=== PATIENT | female | born 1980 | race Caucasian/White ===

== ENCOUNTER 2016-04-24 21:45 | Emergency (ER) | payer OTHER ==
[~2016-04-24] VITALS: Ht 165.1 cm; Wt 68.0 kg
[~2016-04-24 21:45] MED LIST: CLON1TAB36 PO; DIAZ5TAB PO; LAMO200T14 PO; NAPR550T PO; PRD20T PO; TRAM50TA2 PO
[2016-04-24] MEDS ORDERED: OXYB15TA PO (21:52)
[2016-04-24] MEDS ORDERED: NS IV 1000 ML 1,000 ML ONE (22:39)
[2016-04-24] MEDS ORDERED: NS IV 1000 ML 1,000 ML IV ONE (23:18)
[2016-04-24] MEDS ORDERED: KETOROLAC 30 MG/ML VIAL IVP STA (23:30)
--- NOTE | 2016-04-24 23:55 | ED General ---
General Chief Complaint: Dizziness/Syncope Stated Complaint: BLURRED VISION,DIZZINESS Nursing Triage Note: Pt c/o sudden onset dizziness and blurred vision in both eyes around 2100 tonight. Pt reports seeing "bright spots" in both eyes. Nursing Sepsis Screen: No Definite Risk Source of Information: Patient Exam Limitations: No Limitations History of Present Illness Time Seen by Provider: 22:00 Initial Comments Here with report of acute onset of dizziness at work tonight at 9 p.m. it's associated with blurred vision. Reports headache for the last 3 days. Denies fever. Reports seeing spots in her eyes. Timing/Duration: 1 Hour Severity: Moderate Associated Systoms: No Diaphoresis, No Fever/Chills, HeadachesNo Nausea/ Vomiting Allergies and Home Medications Allergies Coded Allergies: No Known Drug Allergies (Unverified , 06/24/11) Home Medications Oxybutynin Chloride 15 Mg Tab.er.24 #30 1 TAB PO DAILY (Reported) Constitutional: see HPINo chills, No fever EENTM: blurred vision see HPINo nose congestion Respiratory: no symptoms reported Cardiovascular: no symptoms reported Genitourinary: no symptoms reported Musculoskeletal: no symptoms reported Skin: no symptoms reported Psychiatric/Neurological: See HPI Headache (global)Denies Weakness, Other ( dizziness) All Other Systems Reviewed Negative Unless Noted: Yes Past Wddehdf-Wsnvxy-Jcjtat Hx Patient Social History Alcohol Use: Denies Use Recreational Drug Use: No Smoking Status: Current Everyday Smoker Recent Foreign Travel: No Contact w/Someone Who Travel: No Recent Infectious Disease Expo: No Recent Hopitalizations: No Physical Abuse Screen: No Sexual Abuse: No Seasonal Allergies Seasonal Allergies: No Surgeries HX Surgeries: Yes Surgeries: Section Respiratory Hx Respiratory Disorders: No Cardiovascular Hx Cardiac Disorders: No Neurological Hx Neurological Disorders: No Reproductive System Hx Reproductive Disorders: No Sexually Transmitted Disease: No Genitourinary Hx Genitourinary Disorders: Yes Genitourinary Disorders: UTI-Chronic Gastrointestinal Hx Gastrointestinal Disorders: No Musculoskeletal Hx Musculoskeletal Disorders: No Endocrine Hx Endocrine Disorders: No HEENT HX ENT Disorders: No Cancer Hx Cancer: No Psychosocial Hx Psychiatric Problems: Yes Behavioral Health Disorders: Anxiety, Depression Integumentary HX Skin/Integumentary Disorder: No Blood Transfusions Hx Blood Disorders: No Adverse Reaction to a Blood Tr: No Reviewed Nursing Assessment Reviewed/Agree w Nursing PMH: Yes Physical Exam Vital Signs Vital Sign - Last 12Hours 04/24/16 21:49 Temp 97.5 Pulse 84 Resp 18 B/P 123/82 Pulse Ox 99 O2 Delivery Room Air Capillary Refill : Less Than 3 Seconds General Appearance: No Apparent Distress WD/WN HEENT: PERRL/EOMI Pharynx Normal Other (nasal congestion mild) Neck: Full Range of Motion Normal Inspection Non Tender Supple Respiratory: Lungs Clear Normal Breath Sounds Cardiovascular: Regular Rate, Rhythm No Murmur Gastrointestinal: Non Tender Soft Back: Normal Inspection No CVA Tenderness No Vertebral Tenderness Extremity: Non Tender No Calf Tenderness Neurologic/Psychiatric: Alert Oriented x3 No Motor/Sensory Deficits 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 Norm as Tested Skin: Normal Color Warm/Dry Progress/Results/Core Measures Results/Orders Lab Results Laboratory Tests Test 04/24/16 22:10 04/24/16 23:58 Range/Units Alanine Aminotransferase (ALT/SGPT) 9 0-55 U/L Albumin 4.5 3.2-4.5 G/DL Alkaline Phosphatase 59 40-136 U/L Anion Gap 12 5-14 MMOL/L Aspartate Amino Transf (AST/SGOT) 11 5-34 U/L BUN/Creatinine Ratio 13 Basophils # (Auto) 0.1 0.0-0.1 10^3/uL Basophils (%) (Auto) 1 0-10 % Blood Urea Nitrogen 11 7-18 MG/DL C-Reactive Protein High Sensitivity 0.02 0.00-0.50 MG/DL Calcium Level 9.2 8.5-10.1 MG/DL Carbon Dioxide Level 22 21-32 MMOL/L Chloride Level 105 98-107 MMOL/L Creatinine 0.86 0.60-1.30 MG/DL D-Dimer < 0.27 0.00-0.49 UG/ML Eosinophils # (Auto) 0.3 0.0-0.3 10^3/uL Eosinophils (%) (Auto) 4 0-10 % Estimat Glomerular Filtration Rate > 60 Glucose Level 116 H 70-105 MG/DL Hematocrit 40 35-52 % Hemoglobin 13.7 11.5-16.0 G/DL Lymphocytes # (Auto) 2.5 1.0-4.0 X 10^3 Lymphocytes (%) (Auto) 32 12-44 % Mean Corpuscular Hemoglobin 32 25-34 PG Mean Corpuscular Hemoglobin Concent 34 32-36 G/DL Mean Corpuscular Volume 95 80-99 FL Mean Platelet Volume 9.7 7.4-10.4 FL Monocytes # (Auto) 0.4 0.0-1.0 X 10^3 Monocytes (%) (Auto) 5 0-12 % Neutrophils # (Auto) 4.5 1.8-7.8 X 10^3 Neutrophils (%) (Auto) 58 42-75 % Platelet Count 296 130-400 10^3/uL Potassium Level 3.4 L 3.6-5.0 MMOL/L Red Blood Count 4.25 L 4.35-5.85 10^6/uL Red Cell Distribution Width 12.7 10.0-14.5 % Serum Test, Qualitative NEGATIVE NEGATIVE Sodium Level 139 135-145 MMOL/L Thyroid Stimulating Hormone (TSH) 1.16 0.35-4.94 UIU/ML Total Bilirubin 0.6 0.1-1.0 MG/DL Total Protein 6.4 6.4-8.2 G/DL Troponin I < 0.30 <0.30 NG/ML White Blood Count 7.8 4.3-11.0 10^3/uL Urine Bacteria MODERATE H /HPF Urine Bilirubin NEGATIVE NEGATIVE Urine Casts NONE /LPF Urine Clarity CLEAR Urine Color YELLOW Urine Crystals NONE /LPF Urine Culture Indicated YES Urine Glucose (UA) NEGATIVE NEGATIVE Urine Ketones NEGATIVE NEGATIVE Urine Leukocyte Esterase 1+ H NEGATIVE Urine Mucus MODERATE H /LPF Urine Nitrite NEGATIVE NEGATIVE Urine Protein 1+ H NEGATIVE Urine RBC RARE /HPF Urine RBC (Auto) 1+ H NEGATIVE Urine Specific Entiat 1.020 1.016-1.022 Urine Squamous Epithelial Cells 10-25 H /HPF Urine Urobilinogen NORMAL NORMAL MG/DL Urine WBC 0-2 /HPF Urine pH 6 5-9 My Orders Orders-CATHERINE RODRIGUEZ MD Ns Iv 1000 Ml (Sodium Chloride 0.9%) (04/24/16 22:39) Saline Lock/Iv-Start (04/24/16 23:18) Ns Iv 1000 Ml (Sodium Chloride 0.9%) (04/24/16 23:18) Ketorolac Injection (Toradol Injection) (04/24/16 23:30) Ua Culture If Indicated (04/24/16 23:54) Ct Head Wo (04/25/16 00:01) Cbc With Automated Diff (04/24/16 22:10) Comprehensive Metabolic Panel (04/24/16 22:10) Hs C Reactive Protein (04/24/16 22:10) Troponin I (04/24/16 22:10) Thyroid Stimulating Hormone (04/24/16 22:10) Fibrin Degradation Products (04/24/16 22:10) Hcg,Qualitative Serum (04/24/16 22:10) Dexamethasone Pf Injection (Decadron Pf (04/25/16 00:37) Urine Culture (04/24/16 23:58) Medications Given in ED Current Medications Medications Dose Ordered Sig/Andrew Route Start Time Stop Time Status Last Admin Dose Admin Sodium Chloride 1,000 ml @ 0 mls/hr Q0M ONCE IV 04/24/16 23:18 04/24/16 23:19 DC 04/24/16 22:48 999 MLS/HR Vital Signs/I&O Vital Sign - Last 12Hours 04/24/16 21:49 Temp 97.5 Pulse 84 Resp 18 B/P 123/82 Pulse Ox 99 O2 Delivery Room Air Blood Pressure Mean: 96 Progress Note : Progress Note Seen and evaluated. IV, labs, normal saline 1 L bolus ordered. Monitor patient. Toradol 30 mg IV ordered. UA added. CT head ordered as patient has continued headache and vomiting symptoms. Monitor patient. Decadron 10 mg IV and secondary treatment for headache. Monitor patient. 0015: Overall improved. 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 She had eye exam last month and new prescription. She was wondering if this may be part of the problem. This could be part of the problem related to the headache. The floating spots that she noted earlier gone now and overall she does feel better. She was encouraged to follow up with her eye doctor for repeat exam and follow-up with her doctor for further evaluation as needed. Chart copy to [facility]. Discharged home with return precautions. Patient verbalize understanding instructions and agreement with plan. Diagnostic Imaging Diagonstic Imaging: CT Plain Films/CT/US/NM/MRI: head Comments No intracranial hemorrhage. No evidence of acute cortical stroke. Visualized sinuses and mastoid air cells are clear. Posterior fossa has a CSF space which could reflect a cisterna magna or arachnoid cyst. Per statrad read. Reviewed: Reviewed Night Hawk Study, Reviewed by Me Departure Impression Impression: Primary Impression: Headache Qualified Code: R51 - Headache Additional Impression: Blurred vision, bilateral Disposition: 01 HOME, SELF-CARE Condition: Improved Departure-Patient Inst. Decision time for Depature: 01:19 Referrals: [facility] (PCP/Family) Primary Care Physician Patient Instructions: Double Vision (DC), Headache, Adult (DC) Add. Discharge Instructions: All discharge instructions reviewed with patient and/or family. Voiced understanding. You may take ibuprofen 600 mg every 8 hours as needed for pain. Follow-up for recheck with your eye doctor within the next one to 2 days. 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 Follow-up with your Dr. in a few days for recheck and further evaluation. Return for worse pain, fever, vomiting, weakness, breathing problems or other concerns as needed. Work/School Note: Work Release Form Date Seen in the Emergency Department: Apr 24, 2016 Return to Work: Apr 25, 2016 Restrictions: No Restrictions Copy Copies To 1: RAMIREZ ALVAREZ TIMOTHY D MD Apr 24, 2016 23:55
[2016-04-25] MEDS ORDERED: DEXAMETHASONE PF 10 MG/ML (DECADRON) VIAL IV STA (00:37)
[2016-04-25 00:44] LABS: BILIRUBIN,URINE NEGATIVE (NEGATIVE); KETONES,URINE NEGATIVE (NEGATIVE); LEUKOCYTE ESTERASE ,URINE 1+ (NEGATIVE); NITRITE,URINE NEGATIVE (NEGATIVE); PH,URINE 6 (5-9); PROTEIN,URINE 1+ (NEGATIVE); UROBILINOGEN,URINE NORMAL (NORMAL)
[2016-04-25 00:45] LABS: BASOPHILS % (AUTO) 1 % (0-10); EOSINOPHILS # (AUTO) 0.3 10^3/uL (0.0-0.3); EOSINOPHILS % (AUTO) 4 % (0-10); LYMPHOCYTES # (AUTO) 2.5 X 10^3 (1.0-4.0); LYMPHOCYTES % (AUTO) 32 % (12-44); MEAN CORPUSCULAR HEMOGLOBIN 32 PG (25-34); MEAN CORPUSCULAR HGB CONC 34 G/DL (32-36); MEAN CORPUSCULAR VOLUME 95 FL (80-99); MEAN PLATELET VOLUME 9.7 FL (7.4-10.4); MONOCYTES # (AUTO) 0.4 X 10^3 (0.0-1.0); MONOCYTES % (AUTO) 5 % (0-12); NEUTROPHILS # (AUTO) 4.5 X 10^3 (1.8-7.8); NEUTROPHILS % (AUTO) 58 % (42-75); PLATELET COUNT 296 10^3/uL (130-400); RED BLOOD COUNT 4.25 10^6/uL (4.35-5.85); RED CELL DISTRIBUTION WIDTH 12.7 % (10.0-14.5); WHITE BLOOD COUNT 7.8 10^3/uL (4.3-11.0)
[2016-04-25 00:46] LABS: ANION GAP 12 MMOL/L (5-14); BASOPHILS # (AUTO) 0.1 10^3/uL (0.0-0.1); BLOOD UREA NITROGEN 11 MG/DL (7-18); BUN/CREATININE RATIO 13; CALCIUM 9.2 MG/DL (8.5-10.1); CARBON DIOXIDE 22 MMOL/L (21-32); CHLORIDE 105 MMOL/L (98-107); CREATININE SERUM 0.86 MG/DL (0.60-1.30); GFR ESTIMATED > 60; GLUCOSE 116 MG/DL (70-105); POTASSIUM 3.4 MMOL/L (3.6-5.0); SODIUM 139 MMOL/L (135-145)
[2016-04-25 00:47] LABS: ALANINE AMINOTRANSFERASE 9 U/L (0-55); ALBUMIN 4.5 G/DL (3.2-4.5); ASPARTATE AMINO TRANSFERASE 11 U/L (5-34); BILIRUBIN,TOTAL 0.6 MG/DL (0.1-1.0); THYROID STIMULATING HORMONE 1.16 UIU/ML (0.35-4.94); TOTAL PROTEIN 6.4 G/DL (6.4-8.2); TROPONIN I < 0.30 NG/ML (<0.30)
[2016-04-25 00:49] LABS: WBC,URINE 0-2 /HPF
[2016-04-25 00:59] LABS: hs C REACTIVE PROTEIN 0.02 MG/DL (0.00-0.50)
[2016-04-25 01:26] VITALS: BP 106/65
--- NOTE | 2016-04-25 05:54 | Diagnostic Imaging Report ---
PROCEDURE: CT head without contrast. INDICATION: Headache Correlation is made to cervical CT of 12/24/2015. CT HEAD: Multiple contiguous axial CT images of the head were obtained. FINDINGS: Ventricles and sulci are within normal limits for size. There is no intracranial hemorrhage identified. There is no abnormal mass effect or shift of midline structures. IMPRESSION: Unremarkable CT of the head. Dictated by: Dictated on workstation # [id number]
== END 2016-04-25 01:26 | disposition home or self-care (01) ==
LOC: EDUNIT# 21:45 → ER 21:46
DX: R51 Headache (principal); H53.8 Other visual disturbances; R42 Dizziness and giddiness; F17.210 Nicotine dependence, cigarettes, uncomplicated
CPT/HCPCS: 36415; 70450; 80053; 81000; 84443; 84484; 84703; 85025; 85379; 86141; 87088; 96361; 96374; 96375

== ENCOUNTER 2016-07-26 14:42 | Emergency (ER) | payer OTHER ==
[~2016-07-26] VITALS: Ht 162.6 cm; Wt 64.9 kg
[~2016-07-26 14:42] MED LIST changes: +OXYB15TA PO
--- NOTE | 2016-07-26 15:42 | ED Lower Extremity ---
General Chief Complaint: Lower Extremity Stated Complaint: SWELLING IN [facility] Nursing Triage Note: PT HERE WITH C/O BILAT LEG/ANKLE SWELLING FOR 1 DAY. Nursing Sepsis Screen: No Definite Risk Source: patient Exam Limitations: no limitations History of Present Illness Time seen by provider: 15:41 Initial Comments Swelling to BLE for the past 24 hours, pain to anterior left lower leg. Small bump on left anterior lower leg. No fevers, dyspnea, or history of this. Onset: this morning Severity: moderate Pain/Injury Location: left leg Modifying Factors: Worse With Movement Allergies and Home Medications Allergies Coded Allergies: No Known Drug Allergies (Unverified , 06/24/11) Constitutional: see HPI EENTM: see HPI Respiratory: no symptoms reported Cardiovascular: no symptoms reported Genitourinary: no symptoms reported Musculoskeletal: no symptoms reported Skin: see HPI Psychiatric/Neurological: No Symptoms Reported Past Jmfyskp-Pooumc-Gqpyco Hx Patient Social History Recent Foreign Travel: No Contact w/Someone Who Travel: No Recent Infectious Disease Expo: No Recent Hopitalizations: No Seasonal Allergies Seasonal Allergies: No Surgeries HX Surgeries: Yes Surgeries: Section Respiratory Hx Respiratory Disorders: No Cardiovascular Hx Cardiac Disorders: No Neurological Hx Neurological Disorders: No Reproductive System Hx Reproductive Disorders: No Sexually Transmitted Disease: No Genitourinary Hx Genitourinary Disorders: Yes Genitourinary Disorders: UTI-Chronic Gastrointestinal Hx Gastrointestinal Disorders: No Musculoskeletal Hx Musculoskeletal Disorders: No Endocrine Hx Endocrine Disorders: No HEENT HX ENT Disorders: No Cancer Hx Cancer: No Psychosocial Hx Psychiatric Problems: Yes Behavioral Health Disorders: Anxiety, Depression Integumentary HX Skin/Integumentary Disorder: No Blood Transfusions Hx Blood Disorders: No Adverse Reaction to a Blood Tr: No Physical Exam Vital Signs Vital Sign - Last 12Hours 07/26/16 15:12 Temp 97.8 Pulse 75 Resp 18 B/P (MAP) 99/60 Pulse Ox 99 O2 Delivery Room Air Capillary Refill : Less Than 3 Seconds General Appearance: WD/WN, no apparent distress HEENT: PERRL/EOMI, normal ENT inspection Neck: full range of motion Cardiovascular: regular rate, rhythm, no murmur Respiratory: lungs clear, normal breath sounds, no respiratory distress, no accessory muscle use Gastrointestinal: normal bowel sounds, non tender, soft Hips: bilateral hip non-tender, bilateral hip normal inspection, bilateral hip normal range of motion Legs: left leg pain (A)), bilateral leg swelling ( i am unable to appreciate any swelling to either lower extremity. ) Knees: bilateral knee non-tender, bilateral knee normal inspection, bilateral knee normal range of motion Ankles: bilateral ankle non-tender, bilateral ankle normal inspection, bilateral ankle normal range of motion Feet: bilateral foot non-tender, bilateral foot normal inspection, bilateral foot normal range of motion ( Make description is there is) Neurologic/Psychiatric: alert, normal mood/affect, oriented x 3 Skin: normal color, warm/dry Progress/Results/Core Measures Results/Orders Lab Results Laboratory Tests Test 07/26/16 15:59 Range/Units White Blood Count 7.2 4.3-11.0 10^3/uL Red Blood Count 4.40 4.35-5.85 10^6/uL Hemoglobin 14.1 11.5-16.0 G/DL Hematocrit 42 35-52 % Mean Corpuscular Volume 95 80-99 FL Mean Corpuscular Hemoglobin 32 25-34 PG Mean Corpuscular Hemoglobin Concent 34 32-36 G/DL Red Cell Distribution Width 13.0 10.0-14.5 % Platelet Count 288 130-400 10^3/uL Mean Platelet Volume 9.2 7.4-10.4 FL Neutrophils (%) (Auto) 59 42-75 % Lymphocytes (%) (Auto) 26 12-44 % Monocytes (%) (Auto) 8 0-12 % Eosinophils (%) (Auto) 6 0-10 % Basophils (%) (Auto) 1 0-10 % Neutrophils # (Auto) 4.2 1.8-7.8 X 10^3 Lymphocytes # (Auto) 1.9 1.0-4.0 X 10^3 Monocytes # (Auto) 0.6 0.0-1.0 X 10^3 Eosinophils # (Auto) 0.5 H 0.0-0.3 10^3/uL Basophils # (Auto) 0.1 0.0-0.1 10^3/uL Sodium Level 142 135-145 MMOL/L Potassium Level 4.2 3.6-5.0 MMOL/L Chloride Level 107 98-107 MMOL/L Carbon Dioxide Level 25 21-32 MMOL/L Anion Gap 10 5-14 MMOL/L Blood Urea Nitrogen 10 7-18 MG/DL Creatinine 0.79 0.60-1.30 MG/DL Estimat Glomerular Filtration Rate > 60 BUN/Creatinine Ratio 13 Glucose Level 98 70-105 MG/DL Calcium Level 9.3 8.5-10.1 MG/DL Total Bilirubin 0.7 0.1-1.0 MG/DL Aspartate Amino Transf (AST/SGOT) 13 5-34 U/L Alanine Aminotransferase (ALT/SGPT) 11 0-55 U/L Alkaline Phosphatase 51 40-136 U/L B-Type Natriuretic Peptide 14.0 <100.0 PG/ML Total Protein 6.5 6.4-8.2 G/DL Albumin 4.4 3.2-4.5 G/DL My Orders Orders - JEFF BUTLER APRN Thyroid Stimulating Hormone (07/26/16 15:19) Cbc With Automated Diff (07/26/16 15:19) Comprehensive Metabolic Panel (07/26/16 15:19) BNP (07/26/16 15:19) Ua Culture If Indicated (07/26/16 15:19) Us Venous Lower Ext Lt (07/26/16 15:40) Tibia/Fibula, Left, 2 Views (07/26/16 15:43) Vital Signs/I&O Vital Sign - Last 12Hours 07/26/16 15:12 Temp 97.8 Pulse 75 Resp 18 B/P (MAP) 99/60 Pulse Ox 99 O2 Delivery Room Air Blood Pressure Mean: 73 Departure Communication Progress Notes Negative venous US. Negative x ray. Impression Impression: Primary Impression: Leg pain Disposition: HOME, SELF-CARE Condition: Stable Departure-Patient Inst. Referrals: [facility] (PCP/Family) Primary Care Physician JEFF BUTLER APRN Jul 26, 2016 15:42
[2016-07-26 16:04] LABS: BASOPHILS # (AUTO) 0.1 10^3/uL (0.0-0.1); BASOPHILS % (AUTO) 1 % (0-10); EOSINOPHILS # (AUTO) 0.5 10^3/uL (0.0-0.3); EOSINOPHILS % (AUTO) 6 % (0-10); LYMPHOCYTES # (AUTO) 1.9 X 10^3 (1.0-4.0); LYMPHOCYTES % (AUTO) 26 % (12-44); MEAN CORPUSCULAR HEMOGLOBIN 32 PG (25-34); MEAN CORPUSCULAR HGB CONC 34 G/DL (32-36); MEAN CORPUSCULAR VOLUME 95 FL (80-99); MEAN PLATELET VOLUME 9.2 FL (7.4-10.4); MONOCYTES # (AUTO) 0.6 X 10^3 (0.0-1.0); MONOCYTES % (AUTO) 8 % (0-12); NEUTROPHILS # (AUTO) 4.2 X 10^3 (1.8-7.8); NEUTROPHILS % (AUTO) 59 % (42-75); PLATELET COUNT 288 10^3/uL (130-400); WHITE BLOOD COUNT 7.2 10^3/uL (4.3-11.0)
[2016-07-26 16:24] LABS: ALANINE AMINOTRANSFERASE 11 U/L (0-55); ALBUMIN 4.4 G/DL (3.2-4.5); ANION GAP 10 MMOL/L (5-14); ASPARTATE AMINO TRANSFERASE 13 U/L (5-34); BILIRUBIN,TOTAL 0.7 MG/DL (0.1-1.0); BLOOD UREA NITROGEN 10 MG/DL (7-18); BUN/CREATININE RATIO 13; CALCIUM 9.3 MG/DL (8.5-10.1); CARBON DIOXIDE 25 MMOL/L (21-32); CHLORIDE 107 MMOL/L (98-107); CREATININE SERUM 0.79 MG/DL (0.60-1.30); GFR ESTIMATED > 60; GLUCOSE 98 MG/DL (70-105); POTASSIUM 4.2 MMOL/L (3.6-5.0); SODIUM 142 MMOL/L (135-145); TOTAL PROTEIN 6.5 G/DL (6.4-8.2)
--- NOTE | 2016-07-26 16:37 | Diagnostic Imaging Report ---
INDICATION: Patient complains of swelling over the left lower leg, states a knot appeared on the anterior leg and midshaft, No known trauma or injury. FINDINGS: Two views of the left leg demonstrate normal ossification. No fractures are present. IMPRESSION: Negative left leg. Dictated by: Dictated on workstation # [id number]
--- NOTE | 2016-07-26 16:49 | Diagnostic Imaging Report ---
INDICATION: Left leg pain and swelling. Lump on the anterior left lower leg. TECHNIQUE: Grayscale with color-flow and Doppler waveform evaluation of the left lower extremity deep venous system. CORRELATION STUDY: None FINDINGS: Color and grayscale sonographic images demonstrate no intraluminal defect within the visualized portion of the common femoral, superficial femoral and/or popliteal veins to suggest thrombus formation. These vessels demonstrate normal response to compression and augmentation. There is some subcutaneous edema in the area of palpable abnormality. IMPRESSION: 1. Negative for deep venous thrombosis of the left leg. Dictated by: Dictated on workstation # [id number]
[2016-07-26 17:25] VITALS: BP 112/87
== END 2016-07-26 17:25 | disposition home or self-care (01) ==
LOC: EDUNIT# 14:42 → ER 14:44
DX: R22.41 Localized swelling, mass and lump, right lower limb (principal); R22.42 Localized swelling, mass and lump, left lower limb; M79.661 Pain in right lower leg; M79.662 Pain in left lower leg
CPT/HCPCS: 36415; 73590; 80053; 83880; 84443; 85025; 99283

== ENCOUNTER → 2016-10-25 | Outpatient (CLI) | payer OTHER ==
--- NOTE | 2016-10-25 16:02 | Diagnostic Imaging Report ---
INDICATION: Bone island reported on the sacrum. TECHNIQUE: 26.2 mCi tech 99 MDP was given IV. FINDINGS: Whole-body imaging as well as coned-down views show normal uptake throughout the skeletal system. No abnormal areas of uptake demonstrated. The sacrum appears normal. IMPRESSION: Normal whole-body bone scan. Dictated by: Dictated on workstation # [id number]
== END ==
LOC: CARD 10:45
PROVIDERS: ATTEND Nurse Practitioner Family
DX: Q79.9 Congenital malformation of musculoskeletal system, unspecified (principal)
CPT/HCPCS: 78306

== ENCOUNTER → 2017-05-16 | Outpatient (CLI) | payer OTHER ==
[~2017-05-16] MED LIST changes: +NAPR-1070 PO; -NAPR550T PO
--- NOTE | 2017-05-16 14:40 | Diagnostic Imaging Report ---
PROCEDURE: US OB SINGLE FETUS <14 WKS. TECHNIQUE: Multiple real-time grayscale images were obtained over the gravid uterus in various projections. INDICATION: Dating. FINDINGS: There is an intrauterine gestational sac containing a pole. measurements are consistent with approximately 12 weeks 2 days gestation. heart rate is recorded at 167 beats per minute. No perigestational sac hemorrhage is detected. Right ovary is unremarkable. Left ovary does contain an approximately 2 cm cyst. No free fluid is seen. IMPRESSION: 1. Single live IUP of 12 weeks 2 days gestational age. The estimated date of confinement sonographically is 11/26/2017. 2. 2 cm left ovarian cyst. Dictated by: Dictated on workstation # [id number]
== END ==
LOC: RAD 13:35
PROVIDERS: ATTEND Family Medicine
DX: Z34.81 Encounter for supervision of other normal pregnancy, first trimester (principal); N83.202 Unspecified ovarian cyst, left side
CPT/HCPCS: 76801

== ENCOUNTER → 2017-07-11 | Outpatient (CLI) | payer OTHER ==
--- NOTE | 2017-07-11 11:09 | Diagnostic Imaging Report ---
INDICATION: survey. TECHNIQUE: Multiple Real-time grayscale images were obtained over the gravid uterus. COMPARISON: 05/16/2017. FINDINGS: There is a single live fetus in a transverse presentation with the head to the maternal right. The placenta is posterior. The amniotic fluid volume is normal. The heart rate was recorded at 149 BPM. The survey demonstrates the kidneys, bladder, and stomach to be unremarkable. The spine is unremarkable. There is a four-chamber heart. There is a three-vessel cord with normal cord insertion. The intracranial structures are unremarkable. The cervical length is 3.8 cm. Biometrical measurements are as follows: Biparietal 4.57 cm, age 19 weeks 6 days. Head circumference 17.37 cm, age 20 weeks 0 days. Abdominal circumference 15.01 cm, age 20 weeks 2 days. Femur length 3.01 cm, age 19 weeks 3 days. Sonographic estimate age: 20 weeks 0 days. Sonographic estimated date of delivery: 11/28/17. Estimated Weight: 315 gm (+/- 46 gm). LMP percentile: 22%. heart rate: 149 beats per minute. number: 1 of 1. IMPRESSION: Single live IUP of approximately 20 weeks 0 days gestational age. The estimated date of confinement sonographically is 11/28/2017. No complicating features are detected. Dictated by: Dictated on workstation # [id number]
== END ==
LOC: RAD 09:39
PROVIDERS: ATTEND Family Medicine
DX: Z36.89 Encounter for other specified antenatal screening (principal); Z3A.20 20 weeks gestation of pregnancy
CPT/HCPCS: 76805

== ENCOUNTER 2017-08-27 06:51 | Outpatient (CLI) | payer OTHER ==
[~2017-08-27] VITALS: Ht 160 cm; Wt 77.1 kg
[2017-08-27 07:22] VITALS: BP 103/53
[2017-08-27 08:35] LABS: BASOPHILS % (AUTO) 0 % (0-10); EOSINOPHILS % (AUTO) 0 % (0-10); HEMATOCRIT 33 % (35-52); HEMOGLOBIN 11.2 G/DL (11.5-16.0); LYMPHOCYTES # (AUTO) 1.8 X 10^3 (1.0-4.0); LYMPHOCYTES % (AUTO) 18 % (12-44); MEAN CORPUSCULAR HEMOGLOBIN 32 PG (25-34); MEAN CORPUSCULAR HGB CONC 34 G/DL (32-36); MEAN CORPUSCULAR VOLUME 96 FL (80-99); MEAN PLATELET VOLUME 9.2 FL (7.4-10.4); MONOCYTES # (AUTO) 0.7 X 10^3 (0.0-1.0); MONOCYTES % (AUTO) 7 % (0-12); NEUTROPHILS # (AUTO) 7.7 X 10^3 (1.8-7.8); NEUTROPHILS % (AUTO) 75 % (42-75); PLATELET COUNT 262 10^3/uL (130-400); RED BLOOD COUNT 3.49 10^6/uL (4.35-5.85); WHITE BLOOD COUNT 10.3 10^3/uL (4.3-11.0)
[2017-08-27 08:54] LABS: ALANINE AMINOTRANSFERASE 11 U/L (0-55); ALBUMIN 3.4 GM/DL (3.2-4.5); ALKALINE PHOSPHATASE 63 U/L (40-136); BILIRUBIN,TOTAL 0.4 MG/DL (0.1-1.0); BUN/CREATININE RATIO 15; CALCIUM 8.8 MG/DL (8.5-10.1); CARBON DIOXIDE 22 MMOL/L (21-32); CHLORIDE 109 MMOL/L (98-107); CREATININE SERUM 0.53 MG/DL (0.60-1.30); GFR ESTIMATED > 60; GLUCOSE 83 MG/DL (70-105); SODIUM 138 MMOL/L (135-145); TOTAL PROTEIN 5.8 GM/DL (6.4-8.2)
--- NOTE | 2017-08-28 15:32 | Physician Query-Final Dx ---
TEVIN LINDSEY 08/28/17 1532: Clinic Account Progress/Dx Physician Query: Please give diagnosis Date of Service August 27, 2017 at 06:51 RAMIREZ ALVAREZ DO 08/29/17 1131: Clinic Account Progress/Dx DIAGNOSIS: Diagnosis 27 week gestations RUQ abdominal pain TEVIN LINDSEY August 28, 2017 15:32 RAMIREZ ALVAREZ DO Aug 29, 2017 11:31
== END 2017-08-27 09:31 | disposition home or self-care (01) ==
LOC: WSo 06:51 → LDRP 06:51 → WSo 09:31
PROVIDERS: ATTEND Family Medicine
DX: O26.892 Other specified pregnancy related conditions, second trimester (principal); R10.11 Right upper quadrant pain; Z3A.27 27 weeks gestation of pregnancy
CPT/HCPCS: 36415; 80053; 85025; 99213

== ENCOUNTER → 2017-09-08 | Outpatient (CLI) | payer OTHER ==
--- NOTE | 2017-09-08 08:39 | Diagnostic Imaging Report ---
PROCEDURE: US Abdomen, limited. TECHNIQUE: Multiple realtime grayscale images were obtained over the abdomen in various projections. INDICATION: Right upper quadrant abdominal pain. FINDINGS: Liver parenchyma is homogeneous with normal echotexture. Gallbladder is clear with no stones or wall thickening. Common duct is not dilated. Pancreas is obscured by bowel gas. Right kidney appeared normal. There is no ascites. IMPRESSION: Negative gallbladder sonogram. Dictated by: Dictated on workstation # [id number]
== END ==
LOC: RAD 06:35
PROVIDERS: ATTEND Family Medicine
DX: R10.11 Right upper quadrant pain (principal)
CPT/HCPCS: 76705

== ENCOUNTER → 2017-09-12 | Outpatient (CLI) | payer OTHER | LOC: LAB 06:35 | PROVIDERS: ATTEND Family Medicine | DX: R73.02 Impaired glucose tolerance (oral) (principal) | CPT/HCPCS: 36415; 82951; 82952; 82962 ==

== ENCOUNTER → 2017-10-27 | Outpatient (CLI) | payer OTHER ==
[~2017-10-27] MED LIST changes: +PREN1TAB86 PO
--- NOTE | 2017-10-27 12:49 | Diagnostic Imaging Report ---
INDICATION: Large for dates. TECHNIQUE: Multiple real-time grayscale images were obtained over the gravid uterus. COMPARISON: 07/11/2017. FINDINGS: There is a single live fetus in a cephalic presentation. The amniotic fluid volume is normal. Placenta is fundal. heart rate was recorded at 146 beats per minute. Biometrical measurements are as follows: Biparietal 9.22 cm, age 37 weeks 4 days. Head circumference 32.37 cm, age 36 weeks 5 days. Abdominal circumference 34.00 cm, age 38 weeks 0 days. Femur length 6.76 cm, age 35 weeks 0 days. Sonographic estimate age: 36 weeks 6 days. Sonographic estimated date of delivery: 11/18/2017. Estimated Weight: 3090 gm (+/- 451 gm). LMP percentile: 84%. heart rate: 146 beats per minute. number: 1 of 1. IMPRESSION: Single live IUP approximately 37 weeks gestational age showing normal interval growth when compared to prior exam. No complicating features are detected. Dictated by: Dictated on workstation # [id number]
== END ==
LOC: RAD 11:43
PROVIDERS: ATTEND Family Medicine
DX: O36.60X0 Maternal care for excessive fetal growth, unspecified trimester, not applicable or unspecified (principal); Z3A.37 37 weeks gestation of pregnancy
CPT/HCPCS: 76816

== ENCOUNTER 2017-11-13 12:48 | Outpatient (CLI) | payer OTHER ==
[~2017-11-13] VITALS: Ht 160 cm; Wt 84.6 kg
[~2017-11-13 12:48] MED LIST changes: -PREN1TAB86 PO
[2017-11-13] MEDS ORDERED: PREN1TAB86 PO (13:02)
[2017-11-13 13:05] VITALS: BP 103/55
== END 2017-11-13 13:32 | disposition home or self-care (01) ==
LOC: PREOP 12:48
PROVIDERS: ATTEND Obstetrics & Gynecology
DX: Z01.818 Encounter for other preprocedural examination (principal)
CPT/HCPCS: 87081

== ENCOUNTER → 2018-01-16 | Outpatient (CLI) | payer OTHER ==
[~2018-01-16] MED LIST changes: +ACHD5005 PO; +DOCU100C37 PO; +FERR325T18 PO; +IBUP-844 PO; +PREN1TAB86 PO
--- NOTE | 2018-01-16 19:05 | Diagnostic Imaging Report ---
INDICATION: Routine screening. COMPARISON: No prior mammograms are available for comparison. This is a baseline study. TECHNIQUE: 2D and 3D bilateral screening mammography was performed with computer-aided detection (CAD) system. FINDINGS: Both breasts are heterogeneously dense, limiting the sensitivity of mammography. There is a circumscribed nodule in the upper right breast retroareolar location which appears to be lateral on the tomographic images. This measures approximately 7 mm. This has circumscribed margins and most likely represents a small cyst. The left breast is unremarkable. The axillae are unremarkable. IMPRESSION: Circumscribed density in the upper and outer retroareolar right breast in an area of palpable abnormality. This most likely represents a cyst; however, further evaluation with ultrasound is recommended. ACR BI-RADS Category 0: Incomplete. (Needs additional imaging evaluation). Result letter will be mailed to the patient. Note: At least 10% of breast cancer is not imaged by mammography. Dictated by: Dictated on workstation # [id number]
== END ==
LOC: RAD 13:08
PROVIDERS: ATTEND Obstetrics & Gynecology
DX: Z12.31 Encounter for screening mammogram for malignant neoplasm of breast (principal); R92.8 Other abnormal and inconclusive findings on diagnostic imaging of breast
CPT/HCPCS: 77067

== ENCOUNTER → 2018-02-13 | Outpatient (CLI) | payer OTHER ==
--- NOTE | 2018-02-13 13:52 | Diagnostic Imaging Report ---
INDICATION: Right breast density. Ultrasound is performed for further evaluation. CORRELATION is made with recent screening mammogram from 01/16/2018. FINDINGS: Sonographic interrogation of the 9 to 12 o'clock location of the right breast was performed. There are 2 cysts present. One cyst at the 10 o'clock location 2 cm from the nipple is seen measuring 6 mm x 4 mm 4 mm. There is a second superficial cyst at the 10 o'clock location 1 cm from the nipple measuring approximately 5 mm. No solid lesion is seen. IMPRESSION: Simple cysts at the 10 o'clock location of the right breast, likely accounting for the mammographic density. The patient may return to routine annual screening mammography. BI-RADS category 2 ACR BI-RADS Category 2: Benign findings. Result letter will be mailed to the patient. Note: At least 10% of breast cancer is not imaged by mammography. Dictated by: Dictated on workstation # [id number]
== END ==
LOC: RAD 12:06
PROVIDERS: ATTEND Obstetrics & Gynecology
DX: N60.01 Solitary cyst of right breast (principal)

== ENCOUNTER → 2018-07-03 | Outpatient (CLI) | payer OTHER ==
--- NOTE | 2018-07-03 09:57 | Diagnostic Imaging Report ---
PROCEDURE: CT abdomen with and without contrast. TECHNIQUE: Multiple contiguous axial CT images of the abdomen were obtained prior to and after intravenous administration of iodinated contrast. Auto Exposure Controls were utilized during the CT exam to meet ALARA standards for radiation dose reduction. INDICATION: Abdominal wall bulge. COMPARISON: No prior studies are available for comparison. FINDINGS: The lung bases are clear. No discrete liver mass is identified. The gallbladder is unremarkable. No biliary duct dilatation is seen. The pancreas and spleen are unremarkable. No adrenal mass is detected. There is a 5-6 mm calculus in the mid left kidney. No hydronephrosis is seen. Aorta is nonaneurysmal. There appears to be a fat-containing umbilical hernia. There is some mild diastasis of the rectus abdominis musculature as well. There are bowel loops that extend partially into the midline anterior abdominal wall as well. No bowel obstruction is seen. There is no evidence of strangulation. No free fluid is identified. IMPRESSION: Umbilical hernia. No other significant abnormality is detected. Dictated by: Dictated on workstation # [id number]
== END ==
LOC: RAD 07:54
PROVIDERS: ATTEND Registered Nurse
DX: K42.9 Umbilical hernia without obstruction or gangrene (principal)
CPT/HCPCS: 74170

== ENCOUNTER → 2018-08-20 | Outpatient (CLI) | payer OTHER ==
[~2018-08-20] VITALS: Ht 160 cm; Wt 65.5 kg
[~2018-08-20] MED LIST changes: +IBUP-1780 PO
== END | disposition home or self-care (01) ==
LOC: PREOP 05:38
PROVIDERS: ATTEND Surgery
DX: Z01.818 Encounter for other preprocedural examination (principal)

== ENCOUNTER 2018-08-27 07:00 | Day surgery (SDC) | payer OTHER ==
[~2018-08-27] VITALS: Ht 160 cm; Wt 66.0 kg
[2018-08-27] VITALS (14 sets, daily range): BP systolic 85–112; BP diastolic 48–78
[2018-08-27] MEDS ORDERED: ceFAZolin 2 GM/50 ML NS 50 ML IV ONE (07:30)
[2018-08-27] MEDS: LACTATED RINGERS 1,000 ML IV PRN ×2 (07:40→10:22)
--- NOTE | 2018-08-27 09:15 | Progress Note-Pre Operative ---
Pre-Operative Progress Note H&P Reviewed The H&P was reviewed, patient examined and no changes noted. Time Seen by Provider: 09:12 Date H&P Reviewed: August 27, 2018 Time H&P Reviewed: 09:13 Pre-Operative Diagnosis: Umbilical Hernia ANGEL KELLEY DO August 27, 2018 09:15
[2018-08-27] MEDS ORDERED: fentaNYL INJECTION 100 MCG/2 ML AMP ONE (09:21)
[2018-08-27] MEDS ORDERED: LIDOCAINE PF 2% 5 ML (XYLOCAINE) VIAL ONE (09:21)
[2018-08-27] MEDS ORDERED: proPOfol 200 MG/20 ML (DIPRIVAN) VIAL IV ONE (09:21)
[2018-08-27] MEDS ORDERED: ONDANSETRON 4 MG/2 ML (SDV) Z0FRAN ONE ×2 (09:21→10:44)
[2018-08-27] MEDS ORDERED: ROCURONIUM 10 MG/ML 5 ML SYRINGE IV ONE (09:21)
[2018-08-27] MEDS ORDERED: MIDAZOLAM 2 MG/2 ML (VERSED) VIAL ONE (09:22)
[2018-08-27] MEDS ORDERED: DEXAMETHASONE 10 MG/ML (DECADRON) 1 ML VIAL ONE (09:26)
[2018-08-27] MEDS ORDERED: KETOROLAC 30 MG/ML VIAL ONE (09:26)
[2018-08-27] MEDS ORDERED: SEVOFLURANE (ULTANE) 15 ML INHAL SOLN ONE ×3 (09:26→10:27)
[2018-08-27] MEDS ORDERED: LIDOCAINE 1% INJ 20 ML 20 ML VIAL ONE (09:44)
[2018-08-27] MEDS ORDERED: BUP/EPI 0.5% 1:200,000 (SENSORCAINE) 30 ML VIAL ONE (09:44)
[2018-08-27] MEDS ORDERED: NEOSTIGMINE 1 MG/ML 5 ML SYRINGE ONE (10:28)
[2018-08-27] MEDS ORDERED: GLYCOPYRROLATE 0.2 MG/ML (ROBINUL) 2 ML VIAL ONE (10:28)
--- NOTE | 2018-08-27 10:42 | Progress Note-Post Operative ---
Post-Operative Progess Note Surgeon (s)/Electric Appliance Installer (s) Surgeon ANGEL KELLEY DO Electric Appliance Installer: [place] Pre-Operative Diagnosis Umbilical Hernia Post-Operative Diagnosis Incarcerated Umbilical hernia Adhesions Peritoneal mass Procedure & Operative Findings Date of Procedure 08/27/18 Procedure Performed/Findings Lap UH repair with mesh FRED Exc peritoneal mass Anesthesia Type GET Estimated Blood Loss Estimated blood loss (mL): scant Specimens/Packing Specimens Removed peritoneal mass, hernia contents ANGEL KELLEY DO August 27, 2018 10:42
[2018-08-27] MEDS ORDERED: ACHD5005 PO (10:44)
[2018-08-27] MEDS ORDERED: morphine INJ 10 MG/ML 1ML (SYR OR VIAL) ONE (10:45)
--- NOTE | 2018-08-27 10:45 | Discharge Inst-Surgical ---
Discharge Inst-Surgical Depart Medication/Instructions New, Converted or Re-Newed RX: RX Given to Pt/Family Patient Instructions Follow up Appt: Make appointment for 1 week. [phone] Instructions: No lifting greater than 20 pounds. No strenuous activity. May shower in 24 hours, no tub bath or soaking. Use incentive spirometer at home as directed. No Smoking Skin/Wound Care: May remove bandages in am. You need to leave the Dermabond on incision it will fall off on it's own. Symptoms to Report: Appetite Changes, Extremity Discoloration, Numbness/Tingling, Swelling Increased, Bleeding Excessive, Eyesight Changes, Pain Increased, Urine Color Change, Constipation(Persistent), Fever over 101 degree F, Pain/Pressure in chest, Urinating Difficulty, Cough Up/Vomit Blood, Heart Beat Irreg/Pounding, Pain/Pressure in jaw, Cramps in feet or legs, Lightheadedness, Pain/Pressure in shoulder, Diarrhea(Persistent), Memory Changes Suddenly, Questions/Concerns, Weight gain consecutive days, Dizziness/Fainting, Nausea/Vomiting, Shortness of Breath, Weight gain over 2 pounds If questions or concerns contact your physician Or seek help at emergency department. Activity Activity as Tolerated: Yes Driving Instructions: No Driving/Refer to Dr. Mullins Discharge Diet: No Restrictions Diet After 24 Hours: Clear Liquid if Nauseous If Any Problems/Questions/Issu: Contact Your Physician, Go to Emergency Room Skin/Wound Care Infection Signs and Symptoms: Increased Redness, Foul Odor of Wound, Increased Drainage, Skin Itchy or Has a Rash, Increased Swelling, Temperature Above 101 F Wound Care Comment: heating pad to neck or shoulder tonight for pain Bathing Instructions: Shower Stitches/Loree/Dermabond Dis: Dermabond Ice Pack: Ice On and Off Site (as needed for pain at incision sites) ANGEL KELLEY DO August 27, 2018 10:45
[2018-08-27] MEDS: ONDANSETRON 4 MG/2 ML (SDV) Z0FRAN IVP PRN ×2 (10:48→10:58)
[2018-08-27] MEDS: morphine INJ 10 MG/ML 1ML (SYR OR VIAL) IVP ONE (10:50)
[2018-08-27] MEDS ORDERED: HYDROmorphone 2 MG/ML VIAL (DILAUDID) ONE (11:18)
[2018-08-27] MEDS ORDERED: MEPERIDINE (DEMEROL) INJ 50 MG/ML IVP ONE (11:30)
[2018-08-27] MEDS ORDERED: HYDROmorphone 2 MG/ML VIAL (DILAUDID) IV ONE (11:30)
--- NOTE | 2018-08-27 14:28 | Anesthesia-General Post-Op ---
General Patient Condition Mental Status/LOC: Same as Preop Cardiovascular: Satisfactory Nausea/Vomiting: Absent Respiratory: Satisfactory Pain: Controlled Complications: Absent Post Op Complications Complications None Follow Up Care/Instructions Patient Instructions None needed. Anesthesia/Patient Condition Patient Condition Patient is doing well, no complaints, stable vital signs, no apparent adverse anesthesia problems. No complications reported per nursing. D/C home per [facility] Criteria: Yes BRITTNI FALLON CRNA August 27, 2018 14:28
--- NOTE | 2018-08-27 15:39 | OPERATIVE REPORT ---
DATE OF SERVICE: 08/27/2018 PREOPERATIVE DIAGNOSIS: Umbilical hernia. POSTOPERATIVE DIAGNOSES: 1. Incarcerated umbilical hernia. 2. Adhesions. 3. Peritoneal mass. PROCEDURES: 1. Laparoscopic umbilical herniorrhaphy with mesh placement. 2. Excision of peritoneal mass. 3. Lysis of adhesions. SURGEON: Angel Rick DO CHARGE MANAGER: Vipul Gaviria DO ANESTHESIA: General endotracheal tube. SPECIMEN: 1. Peritoneal mass. 2. Umbilical hernia contents. BLOOD LOSS: Scant. FLUIDS: Per anesthesia. POSTOPERATIVE CONDITION: Stable. INDICATION FOR PROCEDURE: The patient is a 38-year-old female who has been having abdominal pain and it has not gone away, diagnosed with a small umbilical hernia. We had a discussion regarding the fact that this hernia was very small and may not be causing her pain. It has been six months and nothing has helped and she would like to get it fixed. FINDINGS: The patient had a small incarcerated umbilical hernia. She also had some adhesions. She had a peritoneal mass that we removed and sent to pathology. Of note, she also had a very patulous gallbladder with some adhesions to it that may have indicated previous gallbladder attacks. PROCEDURE NOTE: After informed consent was obtained, the patient was brought to the operating room, placed on the table in supine position. She was sterilely prepped and draped in normal fashion. Local lidocaine was used to infiltrate the skin in the left upper quadrant. I made an incision with #11 blade, carried down through the skin into subcutaneous tissue, deepened down to subcutaneous tissue with Bovie electrocautery down to the fascia. Fascia was incised with Bovie electrocautery and bluntly spread the muscle apart, grasped the peritoneum and then cut the peritoneum with the Metzenbaum scissors and bluntly entered the abdomen and placed 11 mm trocar port under direct visualization. Created pneumoperitoneum and then placed 2 more ports in normal fashion using local lidocaine, 11 blade for stab incision and VersaStep system, all done under direct visualization, one in left lower quadrant, one in the right upper quadrant, almost equal to the umbilicus. Upon entry, noted some adhesions, took a picture of this. Also saw what looked like a small whitish nodule in the peritoneum down to the right lower quadrant and then noted the gallbladder was kind of distended and patulous with some adhesions to it. Took pictures of all this, elected to remove this peritoneal mass and sent to pathology. I took down with a grasper and then cut around it with LigaSure. I then took down the adhesions with the LigaSure, clamping, coagulating and transecting and taking these adhesions down with and then started coming across the peritoneum to get to the umbilical area, found fat in the umbilical hernia. This is incarcerated umbilical hernia, took the fat out and then once this was freed up, elected to place a 4.5-inch round mesh, placed into the abdomen through the left upper quadrant and small stab incision above the umbilicus, placed the Rogelio-Saul through, grasped the mesh, wire and pulled this through the abdominal wall and then blew up the balloon to hold the mesh in place then tacked the mesh in place with a SecureStrap, tacking at 3, 6, 9, and 12 o'clock and then in between at about 0.5 to 1 cm intervals and then in the middle of the mesh. Mesh looked nice, held up very well, took a picture of this, had removed. No other obvious bleeding or any other obvious pathology at this point then removed all the ports under direct visualization allowing pneumoperitoneum to escape. Closed the peritoneum with a 3-0 Vicryl suture of the left upper quadrant and then closed the fascia with 0 Vicryl [id number] suture. Copiously irrigated incisions with normal saline and closed the 2 small 5 mm incisions with single interrupted 4-0 undyed Monocryl subcuticular stitch. Closed the supraumbilical incision with 3 interrupted 4-0 undyed Monocryl subcuticular stitches. Area was cleaned and dried. Dermabond placed as well as Band-Aids. The patient was then transferred to recovery room in stable condition. Sponge, instrument and needle counts were correct at the end of the case. Dr. Gaviria assisted in this case helping to make incision, close incision, identify anatomy and moving anatomy away. Job ID: [id number] DocumentID: [id number] Dictated Date: 08/27/2018 10:56:57 Bit Tripoler Date: 08/27/2018 15:38:32 Dictated By: ANGEL RICK DO
== END 2018-08-27 13:55 | disposition home or self-care (01) ==
LOC: SDC 07:00
PROVIDERS: ATTEND Surgery
DX: K42.0 Umbilical hernia with obstruction, without gangrene (principal); D17.79 Benign lipomatous neoplasm of other sites; F17.210 Nicotine dependence, cigarettes, uncomplicated
CPT/HCPCS: 84703; 87081

== ENCOUNTER 2018-10-13 10:48 | Emergency (ER) | payer OTHER ==
[~2018-10-13] VITALS: Ht 165.1 cm; Wt 65.8 kg
--- NOTE | 2018-10-13 11:10 | ED Abdominal Pain ---
General Chief Complaint: Abdominal/GI Problems Stated Complaint: LOWER RIGHT SIDE PAIN Nursing Triage Note: PT AMB TO RM 9 WITH COMPLAINT OF RLQ ABD PAIN . STATES IT IS A SHARP PAIN THAT IS WORSE WHEN WALKING. Sepsis Screen: No Definite Risk Source of Information: Patient Exam Limitations: No Limitations History of Present Illness Date Seen by Provider: Oct 13, 2018 Time Seen by Provider: 11:08 Initial Comments To ER per private vehicle with reports of right lower quadrant abdominal pain it is sharp, worse with walking, tender to touch. It began yesterday, is associated with some nausea, poor appetite, chills. No measured fever. She went to work today thinking it would get better but it actually got worse. No dysuria and no bowel changes. Had a laparoscopic umbilical hernia repair by Dr. Kelley about a month ago. Timing/Duration: 1-2 Days Severity/Quality: Moderate Location: RLQ Radiation: No Radiation Activities at Onset: None Associated Symptoms: Fever/Chills, Nausea/Vomiting Allergies and Home Medications Allergies Coded Allergies: No Known Drug Allergies (Unverified , 08/20/18) Home Medications Hydrocodone Bit/Acetaminophen 1 Tab Tab, 1 TAB PO Q6H PRN for PAIN-MODERATE Prescribed by: ANGEL KELLEY on 08/27/18 1044 Ibuprofen 800 Mg Tablet, 800 MG PO DAILY, (Reported) Patient Home Medication List Home Medication List Reviewed: Yes Review of Systems Review of Systems Constitutional: see HPI EENTM: No Symptoms Reported Respiratory: No Symptoms Reported Cardiovascular: No Symptoms Reported Gastrointestinal: No Symptoms Reported Genitourinary: No Symptoms Reported Musculoskeletal: no symptoms reported Skin: no symptoms reported Psychiatric/Neurological: No Symptoms Reported Endocrine: No Symptoms Reported Hematologic/Lymphatic: No Symptoms Reported Past Qwtilxw-Iywbpz-Trpdwb Hx Patient Social History Alcohol Use: Denies Use Recreational Drug Use: No Smoking Status: Current Everyday Smoker Type Used: Cigarettes Former Smoker, Quit: Jun 14, 2017 2nd Hand Smoke Exposure: Yes Recent Foreign Travel: No Contact w/Someone Who Travel: No Recent Infectious Disease Expo: No Recent Hopitalizations: No Immunizations Up To Date PED Vaccines UTD: No Date of Influenza Vaccine: Jan 05, 2018 Seasonal Allergies Seasonal Allergies: No Past Medical History Surgeries: Yes (D&C, CS X2) Section, Tubal Ligation Respiratory: No Cardiac: No Neurological: No Reproductive Disorders: No Female Reproductive Disorders: Denies Sexually Transmitted Disease: No HIV/AIDS: No Genitourinary: Yes Kidney Stones Gastrointestinal: No Gastroesophageal Reflux, Chronic Constipation Musculoskeletal: Yes Chronic Back Pain Endocrine: No HEENT: Yes (GLASSES) Loss of Vision: Bilateral Hearing Impairment: Denies Cancer: No Psychosocial: Yes Anxiety Integumentary: No Blood Disorders: No Adverse Reaction/Blood Tranf: No (N/A) Family Medical History Cardiovascular disease 19 MOTHER (grandmother) Diabetes mellitus 19 MOTHER (grandmother) Hypertension 19 MOTHER (mother) Respiratory disorder 19 MOTHER (mother -COPD) Physical Exam Vital Signs Vital Signs - First Documented 10/13/18 10:58 Temp 97.3 Pulse 69 Resp 17 B/P (MAP) 114/75 (88) Pulse Ox 100 O2 Delivery Room Air Capillary Refill : Less Than 3 Seconds Height/Weight/BMI Height: 5'5.00" Weight: 145lbs. 8.0oz. 65.778915ls; 25.8 BMI Method:Stated General Appearance: WD/WN, no apparent distress HEENT: PERRL/EOMI, normal ENT inspection Neck: non-tender, full range of motion Respiratory: no respiratory distress, no accessory muscle use Gastrointestinal: normal bowel sounds, soft; No distended, No guarding; tenderness Extremities: normal range of motion, non-tender Neurologic/Psychiatric: alert, normal mood/affect, oriented x 3 Skin: normal color, warm/dry Progress/Results/Core Measures Results/Orders Lab Results Laboratory Tests Test 10/13/18 11:05 10/13/18 11:13 Range/Units Urine Color YELLOW Urine Clarity CLEAR Urine pH 6 5-9 Urine Specific Kendall 1.015 L 1.016-1.022 Urine Protein NEGATIVE NEGATIVE Urine Glucose (UA) NEGATIVE NEGATIVE Urine Ketones NEGATIVE NEGATIVE Urine Nitrite NEGATIVE NEGATIVE Urine Bilirubin NEGATIVE NEGATIVE Urine Urobilinogen NORMAL NORMAL MG/DL Urine Leukocyte Esterase 1+ H NEGATIVE Urine RBC (Auto) 1+ H NEGATIVE Urine RBC 2-5 H /HPF Urine WBC 5-10 H /HPF Urine Squamous Epithelial Cells 10-25 H /HPF Urine Crystals NONE /LPF Urine Bacteria FEW H /HPF Urine Casts NONE /LPF Urine Mucus SMALL H /LPF Urine Culture Indicated YES White Blood Count 6.2 4.3-11.0 10^3/uL Red Blood Count 4.16 L 4.35-5.85 10^6/uL Hemoglobin 12.7 11.5-16.0 G/DL Hematocrit 39 35-52 % Mean Corpuscular Volume 93 80-99 FL Mean Corpuscular Hemoglobin 31 25-34 PG Mean Corpuscular Hemoglobin Concent 33 32-36 G/DL Red Cell Distribution Width 14.4 10.0-14.5 % Platelet Count 266 130-400 10^3/uL Mean Platelet Volume 9.0 7.4-10.4 FL Neutrophils (%) (Auto) 60 42-75 % Lymphocytes (%) (Auto) 31 12-44 % Monocytes (%) (Auto) 8 0-12 % Eosinophils (%) (Auto) 1 0-10 % Basophils (%) (Auto) 1 0-10 % Neutrophils # (Auto) 3.7 1.8-7.8 X 10^3 Lymphocytes # (Auto) 1.9 1.0-4.0 X 10^3 Monocytes # (Auto) 0.5 0.0-1.0 X 10^3 Eosinophils # (Auto) 0.1 0.0-0.3 10^3/uL Basophils # (Auto) 0.0 0.0-0.1 10^3/uL Sodium Level 137 135-145 MMOL/L Potassium Level 3.9 3.6-5.0 MMOL/L Chloride Level 107 98-107 MMOL/L Carbon Dioxide Level 23 21-32 MMOL/L Anion Gap 7 5-14 MMOL/L Blood Urea Nitrogen 9 7-18 MG/DL Creatinine 0.82 0.60-1.30 MG/DL Estimat Glomerular Filtration Rate > 60 BUN/Creatinine Ratio 11 Glucose Level 94 70-105 MG/DL Calcium Level 9.3 8.5-10.1 MG/DL Corrected Calcium 9.1 8.5-10.1 MG/DL Total Bilirubin 0.7 0.1-1.0 MG/DL Aspartate Amino Transf (AST/SGOT) 14 5-34 U/L Alanine Aminotransferase (ALT/SGPT) 10 0-55 U/L Alkaline Phosphatase 67 40-136 U/L Total Protein 6.5 6.4-8.2 GM/DL Albumin 4.3 3.2-4.5 GM/DL My Orders Orders - JEFF BUTLER APRN Cbc With Automated Diff (10/13/18 11:07) Comprehensive Metabolic Panel (10/13/18 11:07) Ed Iv/Invasive Line Start (10/13/18 11:07) Ct Abd/Pelv W (Appendicitis) (10/13/18 11:07) Iohexol Injection (Omnipaque 350 Mg/Ml 1 (10/13/18 11:30) Received Contrast (Hold Metformin- Contr (10/13/18 11:30) Ns (Ivpb) (Sodium Chloride 0.9% Ivpb Bag (10/13/18 11:30) Medications Given in ED Current Medications Medications Dose Ordered Sig/Andrew Route Start Time Stop Time Status Last Admin Dose Admin Iohexol 75 ml ONCE ONCE IV 10/13/18 11:30 10/13/18 11:31 DC 10/13/18 11:57 75 ML Sodium Chloride 100 ml ONCE ONCE IV 10/13/18 11:30 10/13/18 11:31 DC 10/13/18 11:57 80 ML Vital Signs/I&O 10/13/18 10:58 Temp 97.3 Pulse 69 Resp 17 B/P (MAP) 114/75 (88) Pulse Ox 100 O2 Delivery Room Air Blood Pressure Mean: 88 Diagnostic Imaging Diagonstic Imaging: CT Comments NAME: JAM BAER [facility] REC#: [id number] PT STATUS: REG ER : 1980 PHYSICIAN: JEFF BUTLER APRN ADMIT DATE: 10/13/18/ER Draft Date of Exam:10/13/18 CT ABD/PELV W (APPENDICITIS) PROCEDURE: CT abdomen and pelvis with contrast, rule out appendicitis. TECHNIQUE: Multiple contiguous axial images were obtained through the abdomen and pelvis after the administration of intravenous contrast. INDICATION: Right lower quadrant pain. FINDINGS: Comparison is 07/03/2018. Limited views of lower thorax are normal. Liver is normal. No focal liver lesions are seen. Gallbladder is normal. No biliary ductal dilation. Portal vein is patent. Pancreas, spleen and adrenal glands are normal. Kidneys enhance symmetrically without focal lesion. No hydronephrosis. Urinary bladder is normal. Uterus is normal. There is a corpus luteum cyst in the right ovary. There is a small amount of free pelvic fluid. There are no dilated loops of large or small bowel. The appendix is normal. No abdominal or pelvic lymphadenopathy. No free air. Abdominal aorta is normal in caliber. No suspicious osseous lesions. IMPRESSION: 1. Normal appendix. 2. Right-sided corpus luteum cyst with a small amount of free fluid in keeping with recent ovulation. Dictated on workstation # [id number] Dict: 10/13/18 1221 Trans: 10/13/18 1226 [facility] [id number] Interpreted by: REX FELIX MD Electronically signed by: Departure Impression Primary Impression: Urinary tract infection Qualified Codes: N30.00 - Acute cystitis without hematuria Additional Impression: Ricardo Disposition: HOME, SELF-CARE Condition: Stable Departure-Patient Inst. Decision time for Depature: 12:30 Referrals: [facility] (PCP) Primary Care Physician MILDRED LEONE APRN (Family) Primary Care Physician Patient Instructions: Painful Ovulation (DC), Urinary Tract Infection, Adult (DC) Add. Discharge Instructions: 1. Antibiotics as directed for the UTI. There is a small corpus luteum cyst on the right ovary with a little bit of free fluid in the abdomen consistent with recent ovulation which can occasionally be painful. Take anti-inflammatories for this like ibuprofen, naproxen. Follow-up with your doctor next week for recheck. All discharge instructions reviewed with patient and/or family. Voiced understanding. Scripts Sulfamethoxazole/Trimethoprim (Bactrim Ds Tablet) 1 Each Tablet 1 EACH PO BID, #10 TAB Prov: JEFF BUTLER APRN 10/13/18 Work/School Note: Work Release Form Date Seen in the Emergency Department: Oct 13, 2018 Return to Work: Oct 15, 2018 JEFF BUTLER APRN Oct 13, 2018 11:10
[2018-10-13 11:20] LABS: BASOPHILS % (AUTO) 1 % (0-10); EOSINOPHILS # (AUTO) 0.1 10^3/uL (0.0-0.3); EOSINOPHILS % (AUTO) 1 % (0-10); HEMATOCRIT 39 % (35-52); HEMOGLOBIN 12.7 G/DL (11.5-16.0); LYMPHOCYTES # (AUTO) 1.9 X 10^3 (1.0-4.0); LYMPHOCYTES % (AUTO) 31 % (12-44); MEAN CORPUSCULAR HEMOGLOBIN 31 PG (25-34); MEAN CORPUSCULAR HGB CONC 33 G/DL (32-36); MEAN CORPUSCULAR VOLUME 93 FL (80-99); MONOCYTES # (AUTO) 0.5 X 10^3 (0.0-1.0); MONOCYTES % (AUTO) 8 % (0-12); NEUTROPHILS # (AUTO) 3.7 X 10^3 (1.8-7.8); NEUTROPHILS % (AUTO) 60 % (42-75); PLATELET COUNT 266 10^3/uL (130-400); RED CELL DISTRIBUTION WIDTH 14.4 % (10.0-14.5); WHITE BLOOD COUNT 6.2 10^3/uL (4.3-11.0)
[2018-10-13 11:23] LABS: BILIRUBIN,URINE NEGATIVE (NEGATIVE); CLARITY,URINE CLEAR; COLOR,URINE YELLOW; GLUCOSE, URINE (UA) NEGATIVE (NEGATIVE); KETONES,URINE NEGATIVE (NEGATIVE); LEUKOCYTE ESTERASE ,URINE 1+ (NEGATIVE); NITRITE,URINE NEGATIVE (NEGATIVE); PH,URINE 6 (5-9); PROTEIN,URINE NEGATIVE (NEGATIVE); UROBILINOGEN,URINE NORMAL (NORMAL)
[2018-10-13] MEDS ORDERED: NS 100 ML (IVPB) BAG IV ONE (11:30)
[2018-10-13] MEDS ORDERED: HOLD METFORMIN - RECEIVED CONTRAST 20 ML VIAL IV SCH (11:30)
[2018-10-13] MEDS ORDERED: IOHEXOL 350 MG/ML 100 ML (OMNIPAQUE 350) VIAL IV ONE (11:30)
[2018-10-13 11:42] LABS: ALANINE AMINOTRANSFERASE 10 U/L (0-55); ALBUMIN 4.3 GM/DL (3.2-4.5); ALKALINE PHOSPHATASE 67 U/L (40-136); BILIRUBIN,TOTAL 0.7 MG/DL (0.1-1.0); BUN/CREATININE RATIO 11; CALCIUM 9.3 MG/DL (8.5-10.1); CARBON DIOXIDE 23 MMOL/L (21-32); CHLORIDE 107 MMOL/L (98-107); CREATININE SERUM 0.82 MG/DL (0.60-1.30); GFR ESTIMATED > 60; GLUCOSE 94 MG/DL (70-105); POTASSIUM 3.9 MMOL/L (3.6-5.0); SODIUM 137 MMOL/L (135-145); TOTAL PROTEIN 6.5 GM/DL (6.4-8.2)
[2018-10-13 11:44] LABS: BACTERIA,URINE FEW /HPF
--- NOTE | 2018-10-13 12:27 | Diagnostic Imaging Report ---
PROCEDURE: CT abdomen and pelvis with contrast, rule out appendicitis. TECHNIQUE: Multiple contiguous axial images were obtained through the abdomen and pelvis after the administration of intravenous contrast. INDICATION: Right lower quadrant pain. FINDINGS: Comparison is 07/03/2018. Limited views of lower thorax are normal. Liver is normal. No focal liver lesions are seen. Gallbladder is normal. No biliary ductal dilation. Portal vein is patent. Pancreas, spleen and adrenal glands are normal. Kidneys enhance symmetrically without focal lesion. No hydronephrosis. Urinary bladder is normal. Uterus is normal. There is a corpus luteum cyst in the right ovary. There is a small amount of free pelvic fluid. There are no dilated loops of large or small bowel. The appendix is normal. No abdominal or pelvic lymphadenopathy. No free air. Abdominal aorta is normal in caliber. No suspicious osseous lesions. IMPRESSION: 1. Normal appendix. 2. Right-sided corpus luteum cyst with a small amount of free fluid in keeping with recent ovulation. Dictated by: Dictated on workstation # [id number]
[2018-10-13] MEDS ORDERED: SULF1TAB35 PO (12:31)
[2018-10-13] MEDS ORDERED: KETOROLAC 30 MG/ML VIAL IVP ONE (12:45)
[2018-10-13 12:50] VITALS: BP 105/64
== END 2018-10-13 12:51 | disposition home or self-care (01) ==
LOC: EDUNIT# 10:48 → ER 10:49
DX: N39.0 Urinary tract infection, site not specified (principal); N94.0 Mittelschmerz; K21.9 Gastro-esophageal reflux disease without esophagitis; F41.9 Anxiety disorder, unspecified; F17.210 Nicotine dependence, cigarettes, uncomplicated; Z98.890 Other specified postprocedural states; Z98.51 Tubal ligation status; Z87.442 Personal history of urinary calculi; Z82.49 Family history of ischemic heart disease and other diseases of the circulatory system
CPT/HCPCS: 36415; 74177; 80053; 81000; 84703; 85025; 87077; 87088; 87186; 96374

== ENCOUNTER 2019-02-16 11:47 | Emergency (ER) | payer OTHER ==
[~2019-02-16] VITALS: Ht 160.2 cm; Wt 62.9 kg
[~2019-02-16 11:47] MED LIST changes: +SULF1TAB35 PO
[2019-02-16] MEDS ORDERED: IBUPROFEN TABLET 200 MG TAB PO ONE (12:15)
--- NOTE | 2019-02-16 12:25 | ED Respiratory ---
General Chief Complaint: General Problems/Pain Stated Complaint: PNEUMONIA Nursing Triage Note: AMB TO ROOM REPORTS WAS SEEN AT [facility] ON SAT WITH PNEUMONIA AND PUT ON DOXYCYCLINE,AND BENZONATE. TODAY ONSET OF HER BACK HURTING WITH HEADACH DID NOT TAKE ANYTHNG FOR PAIN REPORTS WAS AT WORK. NO CXR DONE Source: patient Exam Limitations: no limitations History of Present Illness Date Seen by Provider: Feb 16, 2019 Time Seen by Provider: 12:23 Initial Comments To ER with reports of pneumonia. She was at [facility] on Friday02/13/19 diagnosed with walking pneumonia given doxycycline and Tessalon Perles. Today he reports some pain across her back, productive cough. No fevers. She denies shortness of breath. She also has a headache and some dizziness. She does smoke cigarettes Timing/Duration: constant Severity: moderate Associated Symptoms: cough, shortness of breath Allergies and Home Medications Allergies Coded Allergies: No Known Drug Allergies (Unverified , 08/20/18) Home Medications Hydrocodone Bit/Acetaminophen 1 Tab Tab, 1 TAB PO Q6H PRN for PAIN-MODERATE Prescribed by: ANGEL KELLEY on 08/27/18 1044 Ibuprofen 800 Mg Tablet, 800 MG PO DAILY, (Reported) Sulfamethoxazole/Trimethoprim 1 Each Tablet, 1 EACH PO BID Prescribed by: JEFF BUTLER on 10/13/18 1231 Patient Home Medication List Home Medication List Reviewed: Yes Review of Systems Review of Systems Constitutional: see HPI EENTM: see HPI Respiratory: see HPI, cough Genitourinary: no symptoms reported Musculoskeletal: no symptoms reported Skin: no symptoms reported Psychiatric/Neurological: No Symptoms Reported Hematologic/Lymphatic: No Symptoms Reported Immunological/Allergic: no symptoms reported Past Qiiefbl-Cdhszj-Neixvg Hx Patient Social History Type Used: Cigarettes Former Smoker, Quit: Jun 14, 2017 2nd Hand Smoke Exposure: Yes Recent Foreign Travel: No Contact w/Someone Who Travel: No Recent Infectious Disease Expo: No Recent Hopitalizations: No Immunizations Up To Date PED Vaccines UTD: No Date of Influenza Vaccine: Jan 05, 2018 Seasonal Allergies Seasonal Allergies: No Past Medical History Surgeries: Yes (D&C, CS X2) Section, Tubal Ligation Respiratory: No Cardiac: No Neurological: No Reproductive Disorders: No Female Reproductive Disorders: Denies Sexually Transmitted Disease: No HIV/AIDS: No Genitourinary: Yes Kidney Stones Gastrointestinal: No Gastroesophageal Reflux, Chronic Constipation Musculoskeletal: Yes Chronic Back Pain Endocrine: No HEENT: Yes (GLASSES) Loss of Vision: Bilateral Hearing Impairment: Denies Cancer: No Psychosocial: Yes Anxiety Integumentary: No Blood Disorders: No Adverse Reaction/Blood Tranf: No (N/A) Family Medical History Cardiovascular disease 19 MOTHER (grandmother) Diabetes mellitus 19 MOTHER (grandmother) Hypertension 19 MOTHER (mother) Respiratory disorder 19 MOTHER (mother -COPD) Physical Exam Vital Signs - First Documented 02/16/19 11:52 Temp 37.1 Pulse 78 Resp 18 B/P (MAP) 111/73 (86) Pulse Ox 98 O2 Delivery Room Air Capillary Refill : Less Than 3 Seconds Height: 5'5.00" Weight: 145lbs. 8.0oz. [id number]; 24.00 BMI Method:Stated General Appearance: WD/WN, no apparent distress Eyes: Bilateral Eye Normal Inspection, Bilateral Eye PERRL, Bilateral Eye EOMI HEENT: PERRL/EOMI, normal ENT inspection Respiratory: no respiratory distress, no accessory muscle use, wheezing Cardiovascular: regular rate, rhythm Gastrointestinal: normal bowel sounds, non tender, soft Extremities: normal range of motion, non-tender Neurologic/Psychiatric: alert, normal mood/affect, oriented x 3 Skin: normal color, warm/dry Progress/Results/Core Measures Suspected Sepsis Recent Fever Within 48 Hours: No Infection Criteria Present: Documented Infection New/Unexplained Altered Menta: No Sepsis Screen: No Definite Risk SIRS Temperature: Pulse: 78 Respiratory Rate: 18 Laboratory Tests 02/16/19 13:08: White Blood Count 5.5 Blood Pressure 111 /73 Mean: 86 Laboratory Tests 02/16/19 13:08: Platelet Count 250 Results/Orders Lab Results Laboratory Tests Test 02/16/19 13:08 Range/Units White Blood Count 5.5 4.3-11.0 10^3/uL Red Blood Count 4.41 4.35-5.85 10^6/uL Hemoglobin 13.7 11.5-16.0 G/DL Hematocrit 41 35-52 % Mean Corpuscular Volume 93 80-99 FL Mean Corpuscular Hemoglobin 31 25-34 PG Mean Corpuscular Hemoglobin Concent 34 32-36 G/DL Red Cell Distribution Width 14.0 10.0-14.5 % Platelet Count 250 130-400 10^3/uL Mean Platelet Volume 9.2 7.4-10.4 FL Neutrophils (%) (Auto) 46 42-75 % Lymphocytes (%) (Auto) 43 12-44 % Monocytes (%) (Auto) 7 0-12 % Eosinophils (%) (Auto) 3 0-10 % Basophils (%) (Auto) 1 0-10 % Neutrophils # (Auto) 2.5 1.8-7.8 X 10^3 Lymphocytes # (Auto) 2.4 1.0-4.0 X 10^3 Monocytes # (Auto) 0.4 0.0-1.0 X 10^3 Eosinophils # (Auto) 0.1 0.0-0.3 10^3/uL Basophils # (Auto) 0.1 0.0-0.1 10^3/uL My Orders Orders - JEFF BUTLER APRN Cbc With Automated Diff (02/16/19 12:15) Basic Metabolic Panel (02/16/19 12:15) Chest Pa/Lat (2 View) (02/16/19 12:15) Ibuprofen Tablet (Motrin Tablet) (02/16/19 12:15) Albuterol/Ipra Inhalation Soln (Duoneb I (02/16/19 12:30) Svn Small Volume Nebulizer (02/16/19 12:22) Medications Given in ED Current Medications Medications Dose Ordered Sig/Andrew Route Start Time Stop Time Status Last Admin Dose Admin Albuterol/ Ipratropium 3 ml ONCE ONCE INH 02/16/19 12:30 02/16/19 12:31 DC 02/16/19 12:57 3 ML Vital Signs/I&O 02/16/19 02/16/19 11:52 13:00 Temp 37.1 Pulse 78 Resp 18 B/P (MAP) 111/73 (86) Pulse Ox 98 98 O2 Delivery Room Air Room Air Capillary Refill : Less Than 3 Seconds Blood Pressure Mean: 86 POS Departure Impression Primary Impression: Lobar pneumonia Disposition: 01 HOME, SELF-CARE Condition: Stable Departure-Patient Inst. Decision time for Depature: 13:23 Referrals: [facility] (PCP) Primary Care Physician MILDRED LEONE APRN (Family) Primary Care Physician Patient Instructions: Pneumonia, Adult (DC) Add. Discharge Instructions: 1. Stop the doxycycline start the new antibiotic 2. Add the steroids as directed. Return to ER for any concerns. Follow-up with your doctor next week. All discharge instructions reviewed with patient and/or family. Voiced understanding. Scripts Prednisone (Prednisone) 20 Mg Tab 40 MG PO DAILY, #6 TAB 0 Refills Prov: JEFF BUTLER APRN 02/16/19 Levofloxacin (Levaquin) 750 Mg Tablet 750 MG PO DAILY for 5 Days, #5 TAB Prov: JEFF BUTLER APRN 02/16/19 JEFF BUTLER APRN Feb 16, 2019 12:24 POS
[2019-02-16] MEDS ORDERED: RT-ALBUTEROL/IPRATROPIUM 3 ML (DUONEB) VIAL INH ONE (12:30)
--- NOTE | 2019-02-16 13:05 | Diagnostic Imaging Report ---
INDICATION: Cough, headache and dizziness. TIME OF EXAM: 12:54 p.m. COMPARISON: Comparison is made with prior chest from 08/26/2013. FINDINGS: The heart size is normal. There may be very minimal infiltrate in the left base best seen on the frontal view. Otherwise, the lungs are clear. No effusion or pneumothorax is seen. IMPRESSION: Questionable minimal left basilar pneumonia. Dictated by: Dictated on workstation # [id number]
[2019-02-16 13:17] LABS: BASOPHILS # (AUTO) 0.1 10^3/uL (0.0-0.1); BASOPHILS % (AUTO) 1 % (0-10); EOSINOPHILS # (AUTO) 0.1 10^3/uL (0.0-0.3); EOSINOPHILS % (AUTO) 3 % (0-10); HEMATOCRIT 41 % (35-52); HEMOGLOBIN 13.7 G/DL (11.5-16.0); LYMPHOCYTES # (AUTO) 2.4 X 10^3 (1.0-4.0); LYMPHOCYTES % (AUTO) 43 % (12-44); MEAN CORPUSCULAR HEMOGLOBIN 31 PG (25-34); MEAN CORPUSCULAR HGB CONC 34 G/DL (32-36); MEAN CORPUSCULAR VOLUME 93 FL (80-99); MEAN PLATELET VOLUME 9.2 FL (7.4-10.4); MONOCYTES # (AUTO) 0.4 X 10^3 (0.0-1.0); MONOCYTES % (AUTO) 7 % (0-12); NEUTROPHILS # (AUTO) 2.5 X 10^3 (1.8-7.8); NEUTROPHILS % (AUTO) 46 % (42-75); PLATELET COUNT 250 10^3/uL (130-400); WHITE BLOOD COUNT 5.5 10^3/uL (4.3-11.0)
[2019-02-16] MEDS ORDERED: LEVO750T9 PO (13:24)
[2019-02-16] MEDS ORDERED: PRD20T PO (13:24)
[2019-02-16 13:31] LABS: BUN/CREATININE RATIO 14; CALCIUM 9.8 MG/DL (8.5-10.1); CARBON DIOXIDE 24 MMOL/L (21-32); CHLORIDE 104 MMOL/L (98-107); CREATININE SERUM 0.76 MG/DL (0.60-1.30); GFR ESTIMATED > 60; GLUCOSE 90 MG/DL (70-105); SODIUM 139 MMOL/L (135-145)
[2019-02-16 14:11] VITALS: BP 91/69
== END 2019-02-16 14:12 | disposition home or self-care (01) ==
LOC: EDUNIT# 11:47 → ER 11:48
DX: J18.1 Lobar pneumonia, unspecified organism (principal); F41.9 Anxiety disorder, unspecified; K21.9 Gastro-esophageal reflux disease without esophagitis; Z87.891 Personal history of nicotine dependence; Z77.22 Contact with and (suspected) exposure to environmental tobacco smoke (acute) (chronic); Z98.51 Tubal ligation status; Z87.442 Personal history of urinary calculi; Z82.49 Family history of ischemic heart disease and other diseases of the circulatory system
CPT/HCPCS: 36415; 71046; 80048; 85025

== ENCOUNTER 2019-05-23 10:58 | Emergency (ER) | payer OTHER ==
[~2019-05-23] VITALS: Ht 160 cm; Wt 66.0 kg
[~2019-05-23 10:58] MED LIST changes: +LEVO750T9 PO; -OXYB15TA PO; +OXYB15TA19 PO; -TRAM50TA2 PO; +TRM50T PO
[2019-05-23 12:28] VITALS: BP_SYST 111; BP_SYST 94; BP_SYST 97; BP_DIAS 57; BP_DIAS 72; BP_DIAS 77
[2019-05-23] MEDS ORDERED: MECLIZINE 25 MG (ANTIVERT) TAB PO ONE (12:45)
[2019-05-23 12:48] LABS: BILIRUBIN,URINE NEGATIVE (NEGATIVE); CLARITY,URINE CLEAR; COLOR,URINE YELLOW; GLUCOSE, URINE (UA) NEGATIVE (NEGATIVE); KETONES,URINE NEGATIVE (NEGATIVE); LEUKOCYTE ESTERASE ,URINE NEGATIVE (NEGATIVE); NITRITE,URINE NEGATIVE (NEGATIVE); PROTEIN,URINE NEGATIVE (NEGATIVE)
--- NOTE | 2019-05-23 12:48 | ED General ---
General Chief Complaint: Dizziness/Syncope Stated Complaint: DIZZY SPELLS Nursing Triage Note: PT CO OF DIZZINESS SINCE LAST FRIDAY AND HAS SOME PALPATIONS WORSENING YESTERDAY Nursing Sepsis Screen: No Definite Risk History of Present Illness Date Seen by Provider: May 23, 2019 Time Seen by Provider: 12:20 Initial Comments 39-year-old female reports approximately 10 day history of vertigo. She reports it is worse when she sits down, she feels that she is spinning, not the room. In addition, for the last 3 days, she has noted occassional palpitations in her chest after the episodes of vertigo. She thinks it might be related to anxiety from the vertigo. No history of these symptoms in the past, no increased stress at work or home, she does drink 4-6 cups of coffee a day. She had viral URI about 2 weeks ago. No chest or left shoulder/arm pain with her symptoms. She has not seen her PCP for this. Only medication is Motrin, prn. She denies palpitations, chest pain or dizziness at this time. No family history of CAD or DM. Timing/Duration: 1 Week Severity: Mild Associated Systoms: Denies Symptoms; No Chest Pain, No Cough, No Diaphoresis, No Fever/Chills, No Headaches, No Loss of Appetite, No Malaise, No Nausea/Vomiting, No Rash, No Seizure, No Shortness of Air, No Syncope, No Weakness, No Other Allergies and Home Medications Allergies Coded Allergies: No Known Drug Allergies (Unverified , 08/20/18) Home Medications Ibuprofen 800 Mg Tablet, 800 MG PO DAILY, (Reported) Patient Home Medication List Home Medication List Reviewed: Yes Review of Systems Review of Systems Constitutional: see HPI, dizziness Cardiovascular: see HPI, palpitations All Other Systems Reviewed Negative Unless Noted: Yes Past Rjfrsws-Gsvkgj-Mscawq Hx Past Med/Social Hx: Reviewed Nursing Past Med/Soc Hx Patient Social History Alcohol Use: Occasionally Uses Recreational Drug Use: No Type Used: Cigarettes Former Smoker, Quit: Jun 14, 2017 2nd Hand Smoke Exposure: Yes Recent Foreign Travel: No Contact w/Someone Who Travel: No Recent Infectious Disease Expo: No Recent Hopitalizations: No Immunizations Up To Date PED Vaccines UTD: No Date of Influenza Vaccine: Jan 05, 2018 Seasonal Allergies Seasonal Allergies: No Past Medical History Surgeries: Yes (D&C, CS X2) Section, Tubal Ligation Respiratory: No Cardiac: No Neurological: No Last Menstrual Period: May 16, 2019 Reproductive Disorders: No Female Reproductive Disorders: Denies Sexually Transmitted Disease: No HIV/AIDS: No Genitourinary: Yes Kidney Stones Gastrointestinal: No Gastroesophageal Reflux, Chronic Constipation Musculoskeletal: Yes Chronic Back Pain Endocrine: No HEENT: Yes (GLASSES) Loss of Vision: Bilateral Hearing Impairment: Denies Cancer: No Psychosocial: Yes Anxiety Integumentary: No Blood Disorders: No Adverse Reaction/Blood Tranf: No (N/A) Family Medical History Cardiovascular disease 19 MOTHER (grandmother) Diabetes mellitus 19 MOTHER (grandmother) Hypertension 19 MOTHER (mother) Respiratory disorder 19 MOTHER (mother -COPD) Physical Exam Vital Signs Vital Signs - First Documented 05/23/19 05/23/19 11:24 13:48 Temp 36.7 Pulse 76 Resp 20 B/P (MAP) 110/72 (85) Pulse Ox 95 O2 Delivery Room Air Capillary Refill : Less Than 3 Seconds Height, Weight, BMI Height: 5'5.00" Weight: 145lbs. 8.0oz. [id number]; 25.00 BMI Method:Stated General Appearance: No Apparent Distress Eyes: Bilateral Eye Normal Inspection, Bilateral Eye PERRL, Bilateral Eye EOMI HEENT: PERRL/EOMI, TMs Normal, Normal ENT Inspection, Pharynx Normal Neck: Full Range of Motion, Normal Inspection, Non Tender, Supple Respiratory: Chest Non Tender, Lungs Clear, Normal Breath Sounds Cardiovascular: Regular Rate, Rhythm, No Edema, No Murmur, Normal Peripheral Pulses Gastrointestinal: Normal Bowel Sounds, Non Tender, Soft Extremity: Normal Capillary Refill, Normal Inspection, Normal Range of Motion Neurologic/Psychiatric: Alert, Oriented x3, No Motor/Sensory Deficits, Normal Mood/Affect Skin: Normal Color, Warm/Dry Progress/Results/Core Measures Suspected Sepsis Recent Fever Within 48 Hours: No Infection Criteria Present: None New/Unexplained Altered Menta: No Sepsis Screen: No Definite Risk SIRS Temperature: Pulse: 76 Respiratory Rate: 20 Laboratory Tests 05/23/19 12:15: White Blood Count 6.9 Blood Pressure 110 /72 Mean: 85 Laboratory Tests 05/23/19 12:15: Creatinine 0.81, Platelet Count 292, Total Bilirubin 0.7 Results/Orders Lab Results Laboratory Tests Test 05/23/19 12:15 Range/Units White Blood Count 6.9 4.3-11.0 10^3/uL Red Blood Count 4.53 4.35-5.85 10^6/uL Hemoglobin 14.1 11.5-16.0 G/DL Hematocrit 43 35-52 % Mean Corpuscular Volume 95 80-99 FL Mean Corpuscular Hemoglobin 31 25-34 PG Mean Corpuscular Hemoglobin Concent 33 32-36 G/DL Red Cell Distribution Width 14.0 10.0-14.5 % Platelet Count 292 130-400 10^3/uL Mean Platelet Volume 9.5 7.4-10.4 FL Neutrophils (%) (Auto) 62 42-75 % Lymphocytes (%) (Auto) 28 12-44 % Monocytes (%) (Auto) 7 0-12 % Eosinophils (%) (Auto) 3 0-10 % Basophils (%) (Auto) 1 0-10 % Neutrophils # (Auto) 4.3 1.8-7.8 X 10^3 Lymphocytes # (Auto) 1.9 1.0-4.0 X 10^3 Monocytes # (Auto) 0.5 0.0-1.0 X 10^3 Eosinophils # (Auto) 0.2 0.0-0.3 10^3/uL Basophils # (Auto) 0.0 0.0-0.1 10^3/uL Urine Color YELLOW Urine Clarity CLEAR Urine pH 5.0 5-9 Urine Specific [place] 1.020 1.016-1.022 Urine Protein NEGATIVE NEGATIVE Urine Glucose (UA) NEGATIVE NEGATIVE Urine Ketones NEGATIVE NEGATIVE Urine Nitrite NEGATIVE NEGATIVE Urine Bilirubin NEGATIVE NEGATIVE Urine Urobilinogen 0.2 < = 1.0 MG/DL Urine Leukocyte Esterase NEGATIVE NEGATIVE Urine RBC (Auto) TRACE-I NEGATIVE Urine RBC NONE /HPF Urine WBC NONE /HPF Urine Squamous Epithelial Cells 2-5 /HPF Urine Crystals NONE /LPF Urine Bacteria NEGATIVE /HPF Urine Casts NONE /LPF Urine Mucus NEGATIVE /LPF Urine Culture Indicated NO Sodium Level 140 135-145 MMOL/L Potassium Level 4.4 3.6-5.0 MMOL/L Chloride Level 106 98-107 MMOL/L Carbon Dioxide Level 24 21-32 MMOL/L Anion Gap 10 5-14 MMOL/L Blood Urea Nitrogen 9 7-18 MG/DL Creatinine 0.81 0.60-1.30 MG/DL Estimat Glomerular Filtration Rate > 60 BUN/Creatinine Ratio 11 Glucose Level 87 70-105 MG/DL Calcium Level 9.2 8.5-10.1 MG/DL Corrected Calcium 8.8 8.5-10.1 MG/DL Total Bilirubin 0.7 0.1-1.0 MG/DL Aspartate Amino Transf (AST/SGOT) 16 5-34 U/L Alanine Aminotransferase (ALT/SGPT) 10 0-55 U/L Alkaline Phosphatase 74 40-136 U/L C-Reactive Protein High Sensitivity 0.01 0.00-0.50 MG/DL Total Protein 6.9 6.4-8.2 GM/DL Albumin 4.5 3.2-4.5 GM/DL TSH [place] Testing 1.41 0.35-4.94 UIU/ML My Orders Orders - KARIN BANERJEE Ekg Tracing (05/23/19 12:13) Meclizine Tablet (Antivert Tablet) (05/23/19 12:45) Cbc With Automated Diff (05/23/19 12:41) Comprehensive Metabolic Panel (05/23/19 12:41) Hs C Reactive Protein (05/23/19 12:41) Ua Culture If Indicated (05/23/19 12:41) Thyroid Analyzer (05/23/19 12:45) Medications Given in ED Current Medications Medications Dose Ordered Sig/Andrew Route Start Time Stop Time Status Last Admin Dose Admin Meclizine HCl 25 mg ONCE ONCE PO 05/23/19 12:45 05/23/19 12:46 DC 05/23/19 12:44 25 MG Vital Signs/I&O 05/23/19 05/23/19 05/23/19 11:24 12:28 13:48 Temp 36.7 36.7 Pulse 76 58 62 67 62 Resp 20 18 B/P (MAP) 110/72 (85) 94/72 (79) 97/57 (85) 111/77 (88) 97/57 (70) Pulse Ox 95 98 O2 Delivery Room Air Capillary Refill : Less Than 3 Seconds Blood Pressure Mean: 85 Progress Note : Time: 12:20 Progress Note Patient seen and evaluated, will obtain labs. Patient became tearful during exam, concerned that something serious could be wrong with her heart. Re-assured we would get labs and EKG, then additional studies, if needed. Lying 94/72, P 58; Sitting 111/77, P 67; Standing 111/90 P 73. 1300 Patient continues to be asymptomatic. Less anxious. 1320 All labs WNL, results discussed with the patient. Options for conservative measures discussed at length. Discharge instructions and return precautions reviewed. All questions answered. ECG Initial ECG Impression Date: May 23, 2019 Initial ECG Impression Time: 12:17 Initial ECG Rate: 59 Initial ECG Rhythm: Normal Sinus Initial ECG Intervals: Normal Initial ECG Intervals SC 120, QRSD 92, QT 408. QTC 405. [place] P 68, QRS 47, T 56. Initial ECG Impression: Normal Initial ECG Comparisson: No Previous ECG Available Comment Reviewed with Dr. Seals, agreed with interpretation. Departure Impression Primary Impression: Vertigo Disposition: 01 HOME, SELF-CARE Condition: Improved Departure-Patient Inst. Decision time for Depature: 13:20 Referrals: [facility] (PCP) Primary Care Physician MILDRED LEONE APRN (Family) Primary Care Physician Patient Instructions: Vertigo (a Type of Dizziness) (DC) Add. Discharge Instructions: Use OTC Meclinzine 25 mg every 8 hours, as needed for dizziness. May use Melatonin 1 hour before bedtime. Consider relaxation or stress relieving activity: walking, meditation, yoga, other hobby or activity. Follow up with your Primary Care Provider to have your orthostatic blood pressures checked in 7-10 days. Make sure you are drinking 16 oz of water every 2-3 hours. Eat small, frequent meals or snack between meals. Slowly decrease the caffeine in your diet. Call Finn Duff or Jennifer for follow up, if you continue to have palpitations. Or your primary care provider can refer you to a aerial sprayer. All discharge instructions reviewed with patient and/or family. Voiced understanding. KARIN BANERJEE May 23, 2019 12:48
[2019-05-23 12:51] LABS: BASOPHILS % (AUTO) 1 % (0-10); EOSINOPHILS # (AUTO) 0.2 10^3/uL (0.0-0.3); EOSINOPHILS % (AUTO) 3 % (0-10); HEMATOCRIT 43 % (35-52); HEMOGLOBIN 14.1 G/DL (11.5-16.0); LYMPHOCYTES # (AUTO) 1.9 X 10^3 (1.0-4.0); LYMPHOCYTES % (AUTO) 28 % (12-44); MEAN CORPUSCULAR HEMOGLOBIN 31 PG (25-34); MEAN CORPUSCULAR HGB CONC 33 G/DL (32-36); MEAN CORPUSCULAR VOLUME 95 FL (80-99); MEAN PLATELET VOLUME 9.5 FL (7.4-10.4); MONOCYTES # (AUTO) 0.5 X 10^3 (0.0-1.0); MONOCYTES % (AUTO) 7 % (0-12); NEUTROPHILS # (AUTO) 4.3 X 10^3 (1.8-7.8); NEUTROPHILS % (AUTO) 62 % (42-75); PLATELET COUNT 292 10^3/uL (130-400); WHITE BLOOD COUNT 6.9 10^3/uL (4.3-11.0)
[2019-05-23 12:56] LABS: BACTERIA,URINE NEGATIVE /HPF
[2019-05-23 13:06] LABS: ALANINE AMINOTRANSFERASE 10 U/L (0-55); ALBUMIN 4.5 GM/DL (3.2-4.5); ALKALINE PHOSPHATASE 74 U/L (40-136); BILIRUBIN,TOTAL 0.7 MG/DL (0.1-1.0); BUN/CREATININE RATIO 11; CALCIUM 9.2 MG/DL (8.5-10.1); CARBON DIOXIDE 24 MMOL/L (21-32); CHLORIDE 106 MMOL/L (98-107); CREATININE SERUM 0.81 MG/DL (0.60-1.30); GFR ESTIMATED > 60; GLUCOSE 87 MG/DL (70-105); POTASSIUM 4.4 MMOL/L (3.6-5.0); SODIUM 140 MMOL/L (135-145); TOTAL PROTEIN 6.9 GM/DL (6.4-8.2)
[2019-05-23 13:48] VITALS: BP 97/57
== END 2019-05-23 13:48 | disposition home or self-care (01) ==
LOC: EDUNIT# 10:58 → ER 10:58
DX: R42 Dizziness and giddiness (principal); Z87.891 Personal history of nicotine dependence; Z82.49 Family history of ischemic heart disease and other diseases of the circulatory system
CPT/HCPCS: 36415; 80053; 81000; 84443; 85025; 86141; 93005

== ENCOUNTER 2019-07-05 10:10 | Emergency (ER) | payer OTHER ==
[~2019-07-05] VITALS: Ht 160 cm; Wt 65.8 kg
[2019-07-05 10:48] LABS: BASOPHILS % (AUTO) 0 % (0-10); EOSINOPHILS # (AUTO) 0.4 10^3/uL (0.0-0.3); EOSINOPHILS % (AUTO) 5 % (0-10); HEMATOCRIT 41 % (35-52); HEMOGLOBIN 13.8 G/DL (11.5-16.0); LYMPHOCYTES # (AUTO) 0.3 X 10^3 (1.0-4.0); LYMPHOCYTES % (AUTO) 4 % (12-44); MEAN CORPUSCULAR HEMOGLOBIN 31 PG (25-34); MEAN CORPUSCULAR HGB CONC 33 G/DL (32-36); MEAN CORPUSCULAR VOLUME 93 FL (80-99); MEAN PLATELET VOLUME 8.9 FL (7.4-10.4); MONOCYTES # (AUTO) 0.5 X 10^3 (0.0-1.0); MONOCYTES % (AUTO) 5 % (0-12); NEUTROPHILS % (AUTO) 86 % (42-75); PLATELET COUNT 245 10^3/uL (130-400); RED CELL DISTRIBUTION WIDTH 14.1 % (10.0-14.5); WHITE BLOOD COUNT 9.2 10^3/uL (4.3-11.0)
[2019-07-05 10:50] LABS: BILIRUBIN,URINE NEGATIVE (NEGATIVE); CLARITY,URINE CLEAR; COLOR,URINE AMBER; GLUCOSE, URINE (UA) NEGATIVE (NEGATIVE); KETONES,URINE NEGATIVE (NEGATIVE); LEUKOCYTE ESTERASE ,URINE NEGATIVE (NEGATIVE); NITRITE,URINE NEGATIVE (NEGATIVE); PROTEIN,URINE NEGATIVE (NEGATIVE)
[2019-07-05 11:11] LABS: ALANINE AMINOTRANSFERASE 10 U/L (0-55); ALBUMIN 4.5 GM/DL (3.2-4.5); ALKALINE PHOSPHATASE 74 U/L (40-136); BILIRUBIN,TOTAL 1.1 MG/DL (0.1-1.0); BUN/CREATININE RATIO 10; CALCIUM 9.1 MG/DL (8.5-10.1); CARBON DIOXIDE 22 MMOL/L (21-32); CHLORIDE 104 MMOL/L (98-107); GFR ESTIMATED > 60; GLUCOSE 94 MG/DL (70-105); POTASSIUM 3.9 MMOL/L (3.6-5.0); SODIUM 137 MMOL/L (135-145); TOTAL PROTEIN 6.9 GM/DL (6.4-8.2)
[2019-07-05] MEDS ORDERED: NS IV 1000 ML 1,000 ML IV SCH (11:18)
[2019-07-05 11:20] LABS: BACTERIA,URINE MODERATE /HPF; RBC,URINE 0-2 /HPF
[2019-07-05 11:35] LABS: EOSINOPHILS % (MANUAL) 4 %; LYMPHOCYTES % (MANUAL) 4 %; MONOCYTES % (MANUAL) 6 %; NEUTROPHILS % (MANUAL) 86 %; RBC MORPH NORMAL
--- NOTE | 2019-07-05 11:41 | ED GU-Female ---
General Chief Complaint: - Urinary Stated Complaint: BACK PAIN,FEVER Nursing Triage Note: pt amb to with complaint of low back pain that radiates to mid back, fever, cough. was diagnosed 2 weeks ago with possible kidney stone and prescribed flowmax. was seen friday at [facility] and prescribed macrobid for UTI. has had cough for the last 2 weeks and sinus drainage for the last two months. denies travel or any known exposure to covid pt. 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 Nursing Sepsis Screen: No Definite Risk History of Present Illness Date Seen by Provider: Jul 05, 2019 Time Seen by Provider: 11:10 Initial Comments 39 year old female presents for right lower back pain and fever for the last 2-3 days 99-100*. No cough, chest pain or SOA. No known COVID 19 exposure or travel outside local area. She works at [employer]. History of kidney stone 2-3 years ago. Being treated with Macrobid for UTI and Flomax. Timing/Duration: intermittent Severity/Quality: mild Radiation: right flank Associated Symptoms: abdominal pain, dysuria, fever/chills; No loss of bladder control; lower back pain (right); No nausea/vomiting; urinary frequency Allergies and Home Medications Allergies Coded Allergies: No Known Drug Allergies (Unverified , 08/20/18) Home Medications Ibuprofen 800 Mg Tablet, 800 MG PO DAILY, (Reported) Patient Home Medication List Home Medication List Reviewed: Yes Review of Systems Review of Systems Constitutional: see HPI, fever EENTM: see HPI, no symptoms reported Respiratory: no symptoms reported, see HPI Cardiovascular: no symptoms reported, see HPI Gastrointestinal: see HPI, abdominal pain Genitourinary: see HPI, dysuria, frequency, flank pain (right) : No Musculoskeletal: no symptoms reported, see HPI Skin: no symptoms reported, see HPI Psychiatric/Neurological: No Symptoms Reported, See HPI All Other Systemes Reviewed Negative Unless Noted: Yes Past Ivfftfm-Dofllp-Bjyhuq Hx Past Med/Social Hx: Reviewed Nursing Past Med/Soc Hx Patient Social History Alcohol Use: Denies Use Recreational Drug Use: No Smoking Status: Current Everyday Smoker Type Used: Cigarettes Former Smoker, Quit: Jun 14, 2017 2nd Hand Smoke Exposure: Yes Recent Foreign Travel: No Contact w/Someone Who Travel: No Recent Infectious Disease Expo: No Recent Hopitalizations: No Immunizations Up To Date PED Vaccines UTD: No Date of Influenza Vaccine: Jan 05, 2018 Seasonal Allergies Seasonal Allergies: No Past Medical History Surgeries: Yes (D&C, CS X2) Section, Tubal Ligation Respiratory: No Cardiac: No Neurological: No Reproductive Disorders: No Female Reproductive Disorders: Denies Sexually Transmitted Disease: No HIV/AIDS: No Genitourinary: Yes Kidney Stones Gastrointestinal: No Gastroesophageal Reflux, Chronic Constipation Musculoskeletal: Yes Chronic Back Pain Endocrine: No HEENT: Yes (GLASSES) Loss of Vision: Bilateral Hearing Impairment: Denies Cancer: No Psychosocial: Yes Anxiety Integumentary: No Blood Disorders: No Adverse Reaction/Blood Tranf: No (N/A) Family Medical History Cardiovascular disease 19 MOTHER (grandmother) Diabetes mellitus 19 MOTHER (grandmother) Hypertension 19 MOTHER (mother) Respiratory disorder 19 MOTHER (mother -COPD) Physical Exam Vital Signs Vital Signs - First Documented 07/05/19 10:10 Temp 37.0 Pulse 97 Resp 20 B/P (MAP) 108/52 (70) Pulse Ox 98 O2 Delivery Room Air Capillary Refill : Less Than 3 Seconds Height, Weight, BMI Height: 5'5.00" Weight: 145lbs. 8.0oz. 65.063756gk; 25.00 BMI Method:Stated General Appearance: WD/WN, no apparent distress HEENT: PERRL/EOMI, normal ENT inspection, TMs normal, pharynx normal Neck: non-tender, full range of motion, supple, normal inspection Cardiovascular: normal peripheral pulses, regular rate, rhythm, no murmur Respiratory: chest non-tender, lungs clear, normal breath sounds Gastrointestinal: normal bowel sounds, soft, tenderness (suprapubic and RLQ) Back: normal inspection, no vertebral tenderness, CVA tenderness (R) Extremities: normal range of motion, non-tender, normal capillary refill Neurologic/Psychiatric: no motor/sensory deficits, alert, normal mood/affect, oriented x 3 Skin: normal color, warm/dry Progress/Results/Core Measures Suspected Sepsis Recent Fever Within 48 Hours: Yes Infection Criteria Present: None New/Unexplained Altered Menta: No Sepsis Screen: No Definite Risk SIRS Temperature: Pulse: 97 Respiratory Rate: 20 Laboratory Tests 07/05/19 10:40: White Blood Count 9.2 Blood Pressure 108 /52 Mean: 70 Laboratory Tests 07/05/19 10:40: Creatinine 0.80, Platelet Count 245, Total Bilirubin 1.1H Results/Orders Lab Results Laboratory Tests Test 07/05/19 10:25 07/05/19 10:40 Range/Units Urine Color LNY H Urine Clarity CLEAR Urine pH 6.0 5-9 Urine Specific [place] 1.025 H 1.016-1.022 Urine Protein NEGATIVE NEGATIVE Urine Glucose (UA) NEGATIVE NEGATIVE Urine Ketones NEGATIVE NEGATIVE Urine Nitrite NEGATIVE NEGATIVE Urine Bilirubin NEGATIVE NEGATIVE Urine Urobilinogen 0.2 < = 1.0 MG/DL Urine Leukocyte Esterase NEGATIVE NEGATIVE Urine RBC (Auto) 2+ H NEGATIVE Urine RBC 0-2 /HPF Urine WBC 2-5 /HPF Urine Squamous Epithelial Cells 2-5 /HPF Urine Crystals NONE /LPF Urine Bacteria MODERATE H /HPF Urine Casts NONE /LPF Urine Mucus MODERATE H /LPF Urine Culture Indicated YES White Blood Count 9.2 4.3-11.0 10^3/uL Red Blood Count 4.44 4.35-5.85 10^6/uL Hemoglobin 13.8 11.5-16.0 G/DL Hematocrit 41 35-52 % Mean Corpuscular Volume 93 80-99 FL Mean Corpuscular Hemoglobin 31 25-34 PG Mean Corpuscular Hemoglobin Concent 33 32-36 G/DL Red Cell Distribution Width 14.1 10.0-14.5 % Platelet Count 245 130-400 10^3/uL Mean Platelet Volume 8.9 7.4-10.4 FL Neutrophils (%) (Auto) 86 H 42-75 % Lymphocytes (%) (Auto) 4 L 12-44 % Monocytes (%) (Auto) 5 0-12 % Eosinophils (%) (Auto) 5 0-10 % Basophils (%) (Auto) 0 0-10 % Neutrophils # (Auto) 8.0 H 1.8-7.8 X 10^3 Lymphocytes # (Auto) 0.3 L 1.0-4.0 X 10^3 Monocytes # (Auto) 0.5 0.0-1.0 X 10^3 Eosinophils # (Auto) 0.4 H 0.0-0.3 10^3/uL Basophils # (Auto) 0.0 0.0-0.1 10^3/uL Neutrophils % (Manual) 86 % Lymphocytes % (Manual) 4 % Monocytes % (Manual) 6 % Eosinophils % (Manual) 4 % Blood Morphology Comment NORMAL Erythrocyte Sedimentation Rate 7 0-20 MM/HR D-Dimer 0.30 0.00-0.49 UG/ML Sodium Level 137 135-145 MMOL/L Potassium Level 3.9 3.6-5.0 MMOL/L Chloride Level 104 98-107 MMOL/L Carbon Dioxide Level 22 21-32 MMOL/L Anion Gap 11 5-14 MMOL/L Blood Urea Nitrogen 8 7-18 MG/DL Creatinine 0.80 0.60-1.30 MG/DL Estimat Glomerular Filtration Rate > 60 BUN/Creatinine Ratio 10 Glucose Level 94 70-105 MG/DL Calcium Level 9.1 8.5-10.1 MG/DL Corrected Calcium 8.7 8.5-10.1 MG/DL Total Bilirubin 1.1 H 0.1-1.0 MG/DL Aspartate Amino Transf (AST/SGOT) 14 5-34 U/L Alanine Aminotransferase (ALT/SGPT) 10 0-55 U/L Alkaline Phosphatase 74 40-136 U/L Lactate Dehydrogenase 163 125-220 U/L C-Reactive Protein High Sensitivity 5.28 H 0.00-0.50 MG/DL Total Protein 6.9 6.4-8.2 GM/DL Albumin 4.5 3.2-4.5 GM/DL Serum Test, Qualitative NEGATIVE NEGATIVE Group A Streptococcus Screen NEGATIVE NEGATIVE Micro Results Microbiology 07/05/19 Influenza Types A,B Antigen (YUMIKO) - Final, Complete My Orders Orders - KARIN BANERJEE Ed Iv/Invasive Line Start (07/05/19 11:18) Ns Iv 1000 Ml (Sodium Chloride 0.9%) (07/05/19 11:18) Ferritin (07/05/19 11:23) Fibrin Degradation Products (07/05/19 11:23) Erythrocyte Sedimentation Rate (07/05/19 11:23) LDH (07/05/19 11:23) 2019 Coronavirus Sars-Cov-2 So (07/05/19 11:23) Abdomen/Kub 1view (07/05/19 11:35) Ceftriaxone For Iv Use (Rocephin For I (07/05/19 12:30) Ct Abd/Pelvis Wo(Kidney Stone) (07/05/19 13:18) Medications Given in ED Current Medications Medications Dose Ordered Sig/Andrew Route Start Time Stop Time Status Last Admin Dose Admin Ceftriaxone Sodium 1000 mg/ Sterile Water 10 ml @ 200 mls/hr ONCE ONCE IV 07/05/19 12:30 07/05/19 12:32 DC 07/05/19 13:08 200 MLS/HR Vital Signs/I&O 07/05/19 07/05/19 10:10 15:04 Temp 37.0 37.6 Pulse 97 89 Resp 20 18 B/P (MAP) 108/52 (70) 105/66 (70) Pulse Ox 98 100 O2 Delivery Room Air Room Air Capillary Refill : Less Than 3 Seconds Blood Pressure Mean: 70 Progress Note : Time: 11:10 Progress Note Patient seen and evaluated, will obtain labs and abdominal x-ray for a KUB. 1200 patient denies any pain at this time, will give 1 L normal saline per IV. 1245 Patient X-ray shows possible calculi, will obtain CT. Patient does report she had cough a few days ago, no cough today since she presented. Some arth ralgias and myalgias, will complete COVID testing, Flu and Strep negative. 1400 CT results reviewed with patient, conservative measures recommended at this time. 1430 discharge instructions and return precautions with the patient. Risks associated with COVID discussed, it is unlikely that she has this but until the test results are back she should follow isolation precautions. Extremely anxious that she has 20 month child and a 70-year-old parent with COPD living with her. Diagnostic Imaging Diagonstic Imaging: Xray Plain Films/CT/US/NM/MRI: abdomen Comments NAME: JAM BAER [facility] REC#: [id number] PT STATUS: REG ER : 1980 PHYSICIAN: KARIN BANERJEEP ADMIT DATE: 07/05/19/ER Draft Date of Exam:07/05/19 ABDOMEN/KUB 1VIEW INDICATION: Kidney stone. TIME OF EXAM: 12:05 p.m. FINDINGS: The bowel gas pattern is nonobstructed. There is approximately 4 mm density overlying the left renal shadow. Calculus cannot be entirely excluded. There are numerous calcific densities in the pelvis which likely represent phleboliths. There are some medially located calcifications in the pelvis on both right and left side. Possibility of distal ureteric calculi cannot be entirely excluded. No free air seen. IMPRESSION: Questionable left renal calculus. Pelvic calcifications medially located are noted and distal ureteric calculi cannot be entirely excluded. CT of the urinary tracts may be useful for further evaluation, if clinically indicated. Dictated on workstation # [id number] Dict: 07/05/19 1235 Trans: 07/05/19 1244 [facility] [id number] Interpreted by: STAN LONGO MD Electronically signed by: Diagonstic Imaging: CT Comments NAME: JAM BAER [facility] REC#: [id number] PT STATUS: REG ER : 1980 PHYSICIAN: KARIN BANERJEE ADMIT DATE: 07/05/19/ER Draft Date of Exam:07/05/19 CT ABD/PELVIS WO(KIDNEY STONE) INDICATION: Right-sided flank pain and hematuria with fever. TECHNIQUE: Multiple contiguous axial images were obtained through the abdomen and pelvis without the use of intravenous contrast. Auto Exposure Controls were utilized during the CT exam to meet ALARA standards for radiation dose reduction. COMPARISON dated 10/13/2018. Visualized portions of the lung bases are clear. There were no pleural fluid collections. There is no free intraperitoneal air. The liver and gallbladder appear normal. The spleen, adrenals, and pancreas appear normal. The right kidney appears normal. The left kidney shows a nonocclusive stone in the mid to superior pole measuring about 7 mm in greatest diameter. There is no hydronephrosis or left ureteral stone. There is no retroperitoneal mass or adenopathy. There is a moderate amount of free fluid in the pelvis. IMPRESSION: There is a nonocclusive stone in the left kidney. The right kidney appears normal. There is no hydronephrosis. There is no sign of bowel obstruction. The appendix appears normal. There is a moderate amount of free fluid in the pelvis. This can be physiologic in a female of menstrual age, consider pelvic sonography if there are clinical symptoms in the pelvis. Dictated on workstation # [id number] Dict: 07/05/19 1433 Trans: 07/05/19 1448 [facility] [id number] Interpreted by: TING FAJARDO MD Electronically signed by: Reviewed: Reviewed by Me Departure Impression Primary Impression: UTI (urinary tract infection) Qualified Codes: N30.01 - Acute cystitis with hematuria Additional Impression: Renal calculi Disposition: HOME, SELF-CARE Condition: Improved Departure-Patient Inst. Decision time for Depature: 14:30 Referrals: [facility] (PCP) Primary Care Physician MILDRED LEONE APRN (Family) Primary Care Physician ADRIANNE LAKHANI MD Patient Instructions: Urinary Tract Infection, Adult (DC), Renal Colic (DC) Add. Discharge Instructions: Increase water intake, 16 ounces every 2 hours while awake. Use Tylenol 650 mg every 8 hours for pain or fever. For severe symptoms of back pain, you may take ibuprofen 600 mg, try to limit use. Continue taking her antibiotics. Call Dr. Lakhani, if symptoms are not improving or worsen. Follow-up with [facility] if symptoms are not improving or worsen. Stay home and isolate yourself, wear a mask when close to family members. Do not return to work until your test results of been called to you. Return to the Emergency Dept for new, urgent health care needs. Difficulty breathing, fever greater than 101, or new, urgent health care needs. All discharge instructions reviewed with patient and/or family. Voiced understanding. Work/School Note: Work Release Form Date Seen in the Emergency Department: Jul 05, 2019 Other Restrictions Listed Below: No work until testing results are confirmed. Copy Copies To 1: ADRIANNE LAKHANI MD, AMY ARNP Jul 05, 2019 11:41
[2019-07-05] MEDS ORDERED: cefTRIAXone FOR IV USE 1,000 MG in WATER (STERILE) FOR INJECTION 10 ML IV ONE (12:30)
--- NOTE | 2019-07-05 12:44 | Diagnostic Imaging Report ---
INDICATION: Kidney stone. TIME OF EXAM: 12:05 p.m. FINDINGS: The bowel gas pattern is nonobstructed. There is approximately 4 mm density overlying the left renal shadow. Calculus cannot be entirely excluded. There are numerous calcific densities in the pelvis which likely represent phleboliths. There are some medially located calcifications in the pelvis on both right and left side. Possibility of distal ureteric calculi cannot be entirely excluded. No free air seen. IMPRESSION: Questionable left renal calculus. Pelvic calcifications medially located are noted and distal ureteric calculi cannot be entirely excluded. CT of the urinary tracts may be useful for further evaluation, if clinically indicated. Dictated by: Dictated on workstation # [id number]
--- NOTE | 2019-07-05 14:49 | Diagnostic Imaging Report ---
INDICATION: Right-sided flank pain and hematuria with fever. TECHNIQUE: Multiple contiguous axial images were obtained through the abdomen and pelvis without the use of intravenous contrast. Auto Exposure Controls were utilized during the CT exam to meet ALARA standards for radiation dose reduction. COMPARISON dated 10/13/2018. Visualized portions of the lung bases are clear. There were no pleural fluid collections. There is no free intraperitoneal air. The liver and gallbladder appear normal. The spleen, adrenals, and pancreas appear normal. The right kidney appears normal. The left kidney shows a nonocclusive stone in the mid to superior pole measuring about 7 mm in greatest diameter. There is no hydronephrosis or left ureteral stone. There is no retroperitoneal mass or adenopathy. There is a moderate amount of free fluid in the pelvis. IMPRESSION: There is a nonocclusive stone in the left kidney. The right kidney appears normal. There is no hydronephrosis. There is no sign of bowel obstruction. The appendix appears normal. There is a moderate amount of free fluid in the pelvis. This can be physiologic in a female of menstrual age, consider pelvic sonography if there are clinical symptoms in the pelvis. Dictated by: Dictated on workstation # [id number]
[2019-07-05 15:04] VITALS: BP 105/66
== END 2019-07-05 15:05 | disposition home or self-care (01) ==
LOC: EDUNIT# 10:17 → ER 10:19
DX: N39.0 Urinary tract infection, site not specified (principal); N20.0 Calculus of kidney; F17.210 Nicotine dependence, cigarettes, uncomplicated; K21.9 Gastro-esophageal reflux disease without esophagitis; F41.9 Anxiety disorder, unspecified
CPT/HCPCS: 36415; 74018; 74176; 80053; 81000; 82728; 83615; 84703; 85007; 85027; 85379; 85652; 86141; 87088; 87430; 87635; 87804

== ENCOUNTER 2019-10-01 12:35 | Emergency (ER) | payer OTHER ==
[~2019-10-01] VITALS: Ht 162.5 cm; Wt 64.4 kg
[2019-10-01] MEDS ORDERED: FAMOTIDINE 20 MG (PEPCID) TABLET PO STA (13:24)
[2019-10-01] MEDS ORDERED: LIDOCAINE 2% VISCOUS 15 ML UDC PO ONE (13:30)
[2019-10-01] MEDS ORDERED: ANTACID SUSP 30 ML UDC (MYLANTA) PO ONE (13:30)
[2019-10-01] MEDS ORDERED: ASPIRIN 81 MG CHEW (CHILDREN'S ASA) PO ONE (13:30)
[2019-10-01 13:31] LABS: BASOPHILS # (AUTO) 0.1 10^3/uL (0.0-0.1); BASOPHILS % (AUTO) 1 % (0-10); EOSINOPHILS # (AUTO) 0.6 10^3/uL (0.0-0.3); EOSINOPHILS % (AUTO) 7 % (0-10); HEMATOCRIT 41 % (35-52); HEMOGLOBIN 13.8 G/DL (11.5-16.0); LYMPHOCYTES # (AUTO) 2.2 X 10^3 (1.0-4.0); LYMPHOCYTES % (AUTO) 26 % (12-44); MEAN CORPUSCULAR HEMOGLOBIN 32 PG (25-34); MEAN CORPUSCULAR HGB CONC 34 G/DL (32-36); MEAN CORPUSCULAR VOLUME 96 FL (80-99); MEAN PLATELET VOLUME 9.5 FL (7.4-10.4); MONOCYTES # (AUTO) 0.5 X 10^3 (0.0-1.0); MONOCYTES % (AUTO) 6 % (0-12); NEUTROPHILS # (AUTO) 5.2 X 10^3 (1.8-7.8); NEUTROPHILS % (AUTO) 61 % (42-75); PLATELET COUNT 295 10^3/uL (130-400); RED CELL DISTRIBUTION WIDTH 13.3 % (10.0-14.5); WHITE BLOOD COUNT 8.6 10^3/uL (4.3-11.0)
--- NOTE | 2019-10-01 13:34 | ED Chest Pain ---
General Chief Complaint: Chest Pain Stated Complaint: CP, BURNING SENSATION Nursing Triage Note: PT AMB TO [facility] WITH COMPLAINT OF RIGHT SIDE CHEST PAIN THAT STARTED FRIDAY. STATES WHILE SHE WAS DRIVING TODAY, SHE HAD A BURNING AROUND HER HEART THAT WENT DOWN TO HER STOMACH AND THEN BACK UP. STATES FELT LIKE SHE PEED HER PANTS BUT DID NOT. Nursing Sepsis Screen: No Definite Risk Source: patient Exam Limitations: no limitations History of Present Illness Date Seen by Provider: Oct 01, 2019 Time Seen by Provider: 13:01 Initial Comments The patient presents ER by private conveyance from the road where she was driving when she says she felt about an hour prior to arrival she had a burning sensation started in her chest midsternum and radiated down into her stomach and after about 3-4 minutes it went away. She just feels queasy now but no nausea. No other radiation of pain. No pain anywhere. No shortness of breath cough fever chills. No malaise weakness or Oddi aches. No history of coronary disease but both her mother and father have COPD. She smokes half pack a day and recently started Chantix and Effexor 2 days ago. She's has a history of panic attacks which she says they do not present like this. She's never had an episode like this before. No diarrhea constipation. She does have a history of umbilical hernia repair, tubal ligation, C-sections. No history of pancreatitis, GERD. Allergies and Home Medications Allergies Coded Allergies: No Known Drug Allergies (Unverified , 08/20/18) Home Medications Hydroxyzine HCl 25 Mg Tablet, 25 MG PO Q6H PRN for ANXIETY Prescribed by: MANDY SARMIENTO on 10/01/19 1637 Ibuprofen 800 Mg Tablet, 800 MG PO DAILY, (Reported) Patient Home Medication List Home Medication List Reviewed: Yes Review of Systems Review of Systems Constitutional: No chills, No diaphoresis EENTM: No Blurred Vision, No Double Vision Respiratory: Denies Cough, Denies Shortness of Air Cardiovascular: See HPI, Chest Pain; Denies Edema, Denies Irregular Heart Rate Gastrointestinal: Denies Abdomen Distended, Denies Abdominal Pain Genitourinary: Denies Burning, Denies Discharge All Other Systems Reviewed Negative Unless Noted: Yes Past Fbgjtge-Pptxfh-Tegptn Hx Patient Social History Alcohol Use: Denies Use Recreational Drug Use: No Smoking Status: Current Everyday Smoker Type Used: Cigarettes (0.5 ppd) 2nd Hand Smoke Exposure: Yes Recent Foreign Travel: No Contact w/Someone Who Travel: No Recent Infectious Disease Expo: No Recent Hopitalizations: No Immunizations Up To Date Tetanus Booster (TDap): Unknown PED Vaccines UTD: No Date of Influenza Vaccine: Jan 05, 2018 Seasonal Allergies Seasonal Allergies: No Past Medical History Surgeries: Yes (D&C, CS X2) Section, Tubal Ligation Respiratory: No Cardiac: No Neurological: No Reproductive Disorders: No Female Reproductive Disorders: Denies Sexually Transmitted Disease: No HIV/AIDS: No Genitourinary: Yes Kidney Stones Gastrointestinal: No Gastroesophageal Reflux, Chronic Constipation Musculoskeletal: Yes Chronic Back Pain Endocrine: No HEENT: Yes (GLASSES) Loss of Vision: Bilateral Hearing Impairment: Denies Cancer: No Psychosocial: Yes Anxiety Integumentary: No Blood Disorders: No Adverse Reaction/Blood Tranf: No (N/A) Family Medical History Cardiovascular disease 19 MOTHER (grandmother) Diabetes mellitus 19 MOTHER (grandmother) Hypertension 19 MOTHER (mother) Respiratory disorder 19 MOTHER (mother -COPD) Physical Exam Vital Signs Vital Signs - First Documented 10/01/19 12:58 Pulse 74 Resp 16 B/P (MAP) 122/76 (91) Pulse Ox 99 O2 Delivery Room Air Capillary Refill : Less Than 3 Seconds Height, Weight, BMI Height: 5'5.00" Weight: 145lbs. 8.0oz. 65.002293se; 24.00 BMI Method:Stated General Appearance: No Apparent Distress, WD/WN HEENT: PERRL/EOMI, Pharynx Normal, Moist Mucous Membranes Neck: Full Range of Motion, Normal Inspection Respiratory: Chest Non Tender, Lungs Clear, Normal Breath Sounds, No Accessory Muscle Use, No Respiratory Distress Cardiovascular: Regular Rate, Rhythm, No Edema, Normal Peripheral Pulses Gastrointestinal: Normal Bowel Sounds, Non Tender, Soft Extremity: Normal Capillary Refill, Normal Inspection, No Pedal Edema Neurologic/Psychiatric: Alert, Oriented x3, No Motor/Sensory Deficits Skin: Normal Color, Warm/Dry Progress/Results/Core Measures Results/Orders Lab Results Laboratory Tests Test 10/01/19 12:56 10/01/19 15:24 Range/Units White Blood Count 8.6 4.3-11.0 10^3/uL Red Blood Count 4.26 L 4.35-5.85 10^6/uL Hemoglobin 13.8 11.5-16.0 G/DL Hematocrit 41 35-52 % Mean Corpuscular Volume 96 80-99 FL Mean Corpuscular Hemoglobin 32 25-34 PG Mean Corpuscular Hemoglobin Concent 34 32-36 G/DL Red Cell Distribution Width 13.3 10.0-14.5 % Platelet Count 295 130-400 10^3/uL Mean Platelet Volume 9.5 7.4-10.4 FL Neutrophils (%) (Auto) 61 42-75 % Lymphocytes (%) (Auto) 26 12-44 % Monocytes (%) (Auto) 6 0-12 % Eosinophils (%) (Auto) 7 0-10 % Basophils (%) (Auto) 1 0-10 % Neutrophils # (Auto) 5.2 1.8-7.8 X 10^3 Lymphocytes # (Auto) 2.2 1.0-4.0 X 10^3 Monocytes # (Auto) 0.5 0.0-1.0 X 10^3 Eosinophils # (Auto) 0.6 H 0.0-0.3 10^3/uL Basophils # (Auto) 0.1 0.0-0.1 10^3/uL Prothrombin Time 13.8 12.2-14.7 SEC INR Comment 1.0 0.8-1.4 Activated Partial Thromboplast Time 31 24-35 SEC Sodium Level 139 135-145 MMOL/L Potassium Level 3.6 3.6-5.0 MMOL/L Chloride Level 107 98-107 MMOL/L Carbon Dioxide Level 22 21-32 MMOL/L Anion Gap 10 5-14 MMOL/L Blood Urea Nitrogen 12 7-18 MG/DL Creatinine 0.79 0.60-1.30 MG/DL Estimat Glomerular Filtration Rate > 60 BUN/Creatinine Ratio 15 Glucose Level 97 70-105 MG/DL Calcium Level 8.9 8.5-10.1 MG/DL Corrected Calcium 8.5 8.5-10.1 MG/DL Magnesium Level 1.9 1.6-2.4 MG/DL Total Bilirubin 0.5 0.1-1.0 MG/DL Aspartate Amino Transf (AST/SGOT) 14 5-34 U/L Alanine Aminotransferase (ALT/SGPT) 10 0-55 U/L Alkaline Phosphatase 63 40-136 U/L Myoglobin 20.3 10.0-92.0 NG/ML Troponin I < 0.028 < 0.028 <0.028 NG/ML Total Protein 6.9 6.4-8.2 GM/DL Albumin 4.5 3.2-4.5 GM/DL My Orders Orders - MANDY SARMIENTO Continuous Ekg Monitoring (10/01/19 13:09) Ekg Tracing (10/01/19 13:09) Cbc With Automated Diff (10/01/19 13:24) Magnesium (10/01/19 13:24) Chest 1 View, Ap/Pa Only (10/01/19 13:24) Comprehensive Metabolic Panel (10/01/19 13:24) Myoglobin Serum (10/01/19 13:24) Protime With Inr (10/01/19 13:24) Partial Thromboplastin Time (10/01/19 13:24) O2 (10/01/19 13:24) Ed Iv/Invasive Line Start (10/01/19 13:24) Aspirin Chewable Tablet (Baby Aspirin Ch (10/01/19 13:30) Lidocaine 2% Viscous 15 Ml (Xylocaine Vi (10/01/19 13:30) Famotidine Tablet (Pepcid Tablet) (10/01/19 13:24) Antacid Suspension (Mylanta Suspension (10/01/19 13:30) Troponin I (10/01/19 12:56) Troponin I (10/01/19 15:00) Hydralazine Tablet (Apresoline Tablet) (10/01/19 14:30) Hydroxyzine Cap/Tab (Vistaril) (10/01/19 15:00) Hydroxyzine Cap/Tab (Vistaril) (10/01/19 14:45) Medications Given in ED Current Medications Medications Dose Ordered Sig/Andrew Route Start Time Stop Time Status Last Admin Dose Admin Al Hydrox/Mg Hydrox/Simethicone 30 ml ONCE ONCE PO 10/01/19 13:30 10/01/19 13:31 DC 10/01/19 13:30 30 ML Aspirin 324 mg ONCE ONCE PO 10/01/19 13:30 10/01/19 13:31 DC 10/01/19 13:30 324 MG Hydroxyzine Pamoate 25 mg ONCE ONCE PO 10/01/19 15:00 10/01/19 15:01 DC 10/01/19 14:50 25 MG Lidocaine HCl 15 ml ONCE ONCE PO 10/01/19 13:30 10/01/19 13:31 DC 10/01/19 13:30 15 ML Vital Signs/I&O 10/01/19 10/01/19 12:58 16:39 Pulse 74 70 Resp 16 17 B/P (MAP) 122/76 (91) 104/62 Pulse Ox 99 95 O2 Delivery Room Air Room Air Blood Pressure Mean: 91 Progress Progress Note #1: Time: 13:37 Progress Note Gave her 324 mg of aspirin and a GI cocktail. Patient is a symptomatically the past hour. Plan to collect a troponin followed by another one in 2 hours which would be 3 hours after initial pain ended. Suspect this is more panic attack but the patient is not convinced. We'll consider pericarditis/myocarditis, bronchitis or bronchospasm, GERD. Progress Note #2: Time: 14:23 Progress Note Nurse advises that the patient was crying and said she had another episode just like the first one this time lasting about 2 seconds starting in her chest burning sensation rushing down her abdomen and was making her feel like she was wetting herself although she did not have incontinence of urine. She says is exactly like the first time but shorter lived. She is a symptomatic at present. We'll give hydralazine. Progress Note #3: Time: 16:28 Progress Note Patient had one more fleeting symptom of burning in her chest and abdomen that went away in a few seconds. She says it was nowhere near as intense as the previous ones. Gallbladder, anxiety? Plan to have her follow-up with the heart doctor outpatient and from there she can go to her primary care doctor at [facility] in [place] for more appropriate workup as indicated. Patient's in agreement with this plan. Plan to have her full 10 6 and Effexor until she sees her primary care provider. Initial ECG Impression Date: Oct 01, 2019 Initial ECG Impression Time: 13:32 Initial ECG Rate: 67 Initial ECG Rhythm: Normal Sinus Initial ECG Intervals: Normal Initial ECG Impression: Normal Comment Normal sinus rhythm without clinically relevant ST elevation or depression. Diagnostic Imaging Diagonstic Imaging: Xray Plain Films/CT/US/NM/MRI: chest (1v) Comments [facility] [place], [place] NAME: JAM BAER [employer] REC#: [id number] PT STATUS: REG ER : 1980 PHYSICIAN: MANDY SARMIENTO MD ADMIT DATE: 10/01/19/ER Draft Date of Exam:10/01/19 CHEST 1 VIEW, AP/PA ONLY INDICATION: Right-sided chest pain Frontal chest obtained at 1:59 p.m. Heart and mediastinal silhouette are normal in appearance. The lungs are clear. There is no pneumothorax or pleural fluid. IMPRESSION: Negative chest, no change from 02/16/2019. Dictated on workstation # [id number] Dict: 10/01/19 1405 Trans: 10/01/19 1410 CVB [id number] Interpreted by: TING FAJARDO MD Electronically signed by: Reviewed: Reviewed by Me Departure Impression Primary Impression: Chest pain Qualified Codes: R07.9 - Chest pain, unspecified Disposition: 01 HOME, SELF-CARE Condition: Stable Departure-Patient Inst. Decision time for Depature: 16:14 Referrals: [facility] (PCP) Primary Care Physician MILDRED LEONE APRN (Family) Primary Care Physician KIKE RAWLS MD Patient Instructions: Chest Pain (DC) Add. Discharge Instructions: There are lots of causes for chest pain. We have ruled out the dangerous ones and I suspect your chest discomfort may be related to anxiety. I am going to send you with a prescription for hydroxyzine to take once every 6 hours if you experience another bout of anxiety or the same kind of chest pain. While I ruled out a heart attack today I cannot rule out that you have some underlying heart issue and I would encourage you to the call Dr. Rawls, paint maker and make a follow-up appointment next week. I would encourage you to hold the Chantix and Effexor until you see your primary care doctor again. If your symptoms get worse and do not respond to hydroxyzine then I would encourage you to return to the ER or during the week you can follow-up with your primary doctor. If you have return of symptoms that last for more than 20-30 minutes or other changing, worsening pattern then please return to the nearest ER. All discharge instructions reviewed with patient and/or family. Voiced understanding. Scripts Hydroxyzine HCl (Hydroxyzine HCl) 25 Mg Tablet 25 MG PO Q6H PRN for ANXIETY, #20 TAB 0 Refills Prov: MANDY SARMIENTO 10/01/19 Copy Copies To 1: KIKE RAWLS MD, TITUS J Oct 01, 2019 13:34
[2019-10-01 13:35] LABS: ALBUMIN 4.5 GM/DL (3.2-4.5); CHLORIDE 107 MMOL/L (98-107); POTASSIUM 3.6 MMOL/L (3.6-5.0); SODIUM 139 MMOL/L (135-145)
[2019-10-01 13:36] LABS: CALCIUM 8.9 MG/DL (8.5-10.1)
[2019-10-01 13:37] LABS: GLUCOSE 97 MG/DL (70-105)
[2019-10-01 13:38] LABS: TOTAL PROTEIN 6.9 GM/DL (6.4-8.2)
[2019-10-01 13:39] LABS: BILIRUBIN,TOTAL 0.5 MG/DL (0.1-1.0); CARBON DIOXIDE 22 MMOL/L (21-32)
[2019-10-01 13:41] LABS: ALKALINE PHOSPHATASE 63 U/L (40-136); CREATININE SERUM 0.79 MG/DL (0.60-1.30); GFR ESTIMATED > 60
[2019-10-01 13:42] LABS: BUN/CREATININE RATIO 15
[2019-10-01 13:44] LABS: ALANINE AMINOTRANSFERASE 10 U/L (0-55); MAGNESIUM 1.9 MG/DL (1.6-2.4)
[2019-10-01 13:51] LABS: PROTHROMBIN TIME PATIENT 13.8 SEC (12.2-14.7)
--- NOTE | 2019-10-01 14:11 | Diagnostic Imaging Report ---
INDICATION: Right-sided chest pain Frontal chest obtained at 1:59 p.m. Heart and mediastinal silhouette are normal in appearance. The lungs are clear. There is no pneumothorax or pleural fluid. IMPRESSION: Negative chest, no change from 02/16/2019. Dictated by: Dictated on workstation # [id number]
[2019-10-01] MEDS ORDERED: hydrALAZINE (APRESOLINE) 25 MG TAB PO ONE (14:30)
[2019-10-01] MEDS ORDERED: hydrOXYzine (VISTARIL/ATARAX) 25 MG capsule/tablet ONE (14:45)
[2019-10-01] MEDS ORDERED: hydrOXYzine (VISTARIL/ATARAX) 25 MG capsule/tablet PO ONE (15:00)
[2019-10-01] MEDS ORDERED: HYDR-700 PO (16:37)
[2019-10-01 16:39] VITALS: BP 104/62
== END 2019-10-01 16:39 | disposition home or self-care (01) ==
LOC: EDUNIT# 12:35 → ER 12:36
DX: R07.89 Other chest pain (principal); F41.9 Anxiety disorder, unspecified; G89.29 Other chronic pain; M54.9 Dorsalgia, unspecified; F17.210 Nicotine dependence, cigarettes, uncomplicated; Z79.1 Long term (current) use of non-steroidal anti-inflammatories (NSAID); Z82.49 Family history of ischemic heart disease and other diseases of the circulatory system
CPT/HCPCS: 36415; 71045; 80053; 83735; 83874; 84484; 85025; 85610; 85730; 93005

== ENCOUNTER → 2020-04-04 | Outpatient (CLI) | payer OTHER ==
[~2020-04-04] MED LIST changes: +HYDR-700 PO
[2020-04-04 08:04] LABS: HEMOGLOBIN 13.6 g/dL (11.5-16.0); WHITE BLOOD COUNT 6.8 10^3/uL (4.3-11.0)
[2020-04-04 08:15] LABS: ALBUMIN 4.1 GM/DL (3.2-4.5); CHLORIDE 109 MMOL/L (98-107); POTASSIUM 4.5 MMOL/L (3.6-5.0); SODIUM 140 MMOL/L (135-145)
[2020-04-04 08:17] LABS: GLUCOSE 90 MG/DL (70-105); TOTAL PROTEIN 6.5 GM/DL (6.4-8.2)
[2020-04-04 08:18] LABS: CARBON DIOXIDE 25 MMOL/L (21-32)
[2020-04-04 08:19] LABS: BILIRUBIN,TOTAL 0.5 MG/DL (0.1-1.0)
[2020-04-04 08:21] LABS: ALKALINE PHOSPHATASE 58 U/L (40-136); CREATININE SERUM 0.72 MG/DL (0.60-1.30); GFR ESTIMATED > 60
[2020-04-04 08:22] LABS: BUN/CREATININE RATIO 17
[2020-04-04 08:24] LABS: ALANINE AMINOTRANSFERASE 8 U/L (0-55)
--- NOTE | 2020-04-04 09:59 | Diagnostic Imaging Report ---
PROCEDURE: US Gallbladder. TECHNIQUE: Multiple real-time grayscale images were obtained over the right upper quadrant in various projections. INDICATION: Right upper quadrant pain. Liver is at the upper limits of normal in size. No discrete liver mass is detected. The portal vein is patent and shows normal direction of flow. The gallbladder is without stones or sludge. No wall thickening or biliary duct dilatation is seen. Pancreas unremarkable. Visualized aorta is nonaneurysmal. IVC is patent. Right kidney is without calculi or hydronephrosis. No ascites. IMPRESSION: Unremarkable gallbladder ultrasound. Dictated by: Dictated on workstation # [id number]
== END ==
LOC: RAD 07:00
PROVIDERS: ATTEND Family Medicine
DX: R10.11 Right upper quadrant pain (principal)
CPT/HCPCS: 36415; 76705; 80053; 85027

== ENCOUNTER → 2020-04-10 | Outpatient (CLI) | payer OTHER ==
[~2020-04-10] MED LIST changes: +CATHETER FLUSH 10 ML SYR IV PRN
--- NOTE | 2020-04-10 16:37 | Diagnostic Imaging Report ---
EXAMINATION: Hepatobiliary scan. INDICATION: Right upper quadrant pain. TECHNIQUE: This study was performed following the administration of 5.14 mCi of 99M technetium Choletec. One can of Ensure was also used for the calculation of the ejection fraction. FINDINGS: There are no prior Nuclear Medicine hepatobiliary scans available for comparison. The gallbladder ultrasound exam of 04/04/2020 failed to show any sign of cholelithiasis or acute cholecystitis. There is uptake of the radiotracer by the gallbladder before 30 minutes. This would weigh against the diagnosis of acute cholecystitis. There is also extension of the radiotracer into the small bowel indicating that the common bile duct is not obstructed. The ejection fraction is 81% (normal greater than 35%). IMPRESSION: 1. There is no evidence for acute cholecystitis or for obstruction of the common bile duct. 2. The ejection fraction is 81% and well within normal limits. Dictated by: Dictated on workstation # [id number]
== END ==
LOC: CARD 12:13
PROVIDERS: ATTEND Surgery
DX: R10.11 Right upper quadrant pain (principal); R11.2 Nausea with vomiting, unspecified
CPT/HCPCS: 78227; A9537

== ENCOUNTER → 2021-09-02 | Outpatient (CLI) | payer BC, OTHER ==
[~2021-09-02] MED LIST changes: -CATHETER FLUSH 10 ML SYR IV PRN; -SULF1TAB35 PO; +SULF1TAB38 PO
--- NOTE | 2021-09-02 08:03 | Diagnostic Imaging Report ---
EXAMINATION: Lumbosacral spine 2 or 3 views HISTORY: Low back pain COMPARISON: None available. FINDINGS: Alignment is normal. No fracture seen. Vertebral body heights are normal. Disc spaces are normal. IMPRESSION: 1. Normal lumbar spine. Dictated by: Dictated on workstation # [id number]
== END ==
LOC: RAD 05:45
PROVIDERS: ATTEND Family Medicine
DX: M54.50 Low back pain, unspecified (principal)
CPT/HCPCS: 72100